=== PATIENT | female | born 1955 | race African-American/Black ===

== ENCOUNTER → 2017-10-16 | Day surgery (SDC) | payer BC ==
[2017-10-15 09:49] LABS: BASOPHILS % 0.4 % (0.0-1.0); EOSINOPHILS # (AUTO) 0.2 (0.0-0.4); EOSINOPHILS % 1.8 % (0.0-6.0); HEMATOCRIT 36.6 % (34.2-44.1); HEMOGLOBIN 11.2 g/dL (12.0-16.0); LYMPHOCYTES # (AUTO) 2.5 (1.0-3.2); LYMPHOCYTES % 28.5 % (18.0-39.1); MEAN CORPUSCULAR HGB CONC 30.6 g/dL (31-35); MEAN CORPUSCULAR VOLUME 84.9 fL (81-99); MONOCYTES # (AUTO) 0.7 (0.2-0.8); MONOCYTES % 7.3 % (4.4-11.3); NEUTROPHILS # (AUTO) 5.5 (2.1-6.9); NEUTROPHILS % 61.4 % (38.7-80.0); PLATELET COUNT 191 x10e3/uL (140-360); RED BLOOD COUNT 4.31 x10e6/uL (3.6-5.1); RED CELL DISTRIBUTION WIDTH 15.2 % (11.7-14.4)
[2017-10-15 10:24] LABS: INR 0.85
[2017-10-15 10:25] LABS: PARTIAL THROMBOPLASTIN TIME 28.1 seconds (23.8-35.5)
[2017-10-15 10:30] LABS: ALANINE AMINOTRANSFERASE 22 IU/L (0-55); ALBUMIN 3.7 g/dL (3.5-5.0); ALBUMIN/GLOBULIN RATIO 0.8 (0.8-2.0); ALKALINE PHOSPHATASE 105 IU/L (40-150); ANION GAP 13.8 mmol/L (8-16); BLOOD UREA NITROGEN 16 mg/dL (7-26); BUN/CREATININE RATIO 17 (6-25); CALCIUM 9.6 mg/dL (8.4-10.2); CARBON DIOXIDE 26 mmol/L (22-29); CHLORIDE 106 mmol/L (98-107); CREATININE, SERUM 0.92 mg/dL (0.57-1.11); EST GLOMERULAR FILTRATION RATE > 60 ML/MIN (60-); GLUCOSE 93 mg/dL (74-118); POTASSIUM 3.8 mmol/L (3.5-5.1); SODIUM 142 mmol/L (136-145)
--- NOTE | 2017-10-15 10:35 | Diagnostic Imaging Report ---
PROCEDURE:CHEST 2 VIEWS TECHNIQUE:PA and lateral chest INDICATION:Preoperative evaluation for stent surgery. COMPARISON:None. FINDINGS: Lungs are clear and symmetrically inflated. No pleural effusions. Normal heart size and mediastinal contour. Intact skeleton. CONCLUSION: No acute abnormality. Dictated by: Naldo Laguna M.D. on 10/15/2017 at 10:43 Electronically approved by: Naldo Laguna M.D. on 10/15/2017 at 10:43
[~2017-10-16] MED LIST: AMLODIPINE BESYL5 MG PO; ATENOLOL50 MG PO; ATORVASTATIN CA20 MG PO; BACTRIM DS TAB1 EACH PO; BELLADONNA/OPIUM 60 MG SUPP PR ONE; CEFOXITIN 1GM/ DEXTROSE 50ML 50 ML IV ONE; CRESTOR10 MG PO; DEXAMETHASONE SOD PHOS INJ 4 MG/ML VIAL ONE; EPHEDRINE SULFATE INJ 50 MG/10 ML SYR ONE; FENTANYL CITRATE/PF 100MCG/2 ML INJ ONE; HYDRALAZINE HCL25 MG PO; HYDRALAZINE HCL50 MG; HYDROCODON-ACE1 EA12 PO; IOPAMIDOL 610MG/1ML 300 MG/ML VIAL IV ONE; LIDOCAINE HCL 2% LOCAL INJ 5 ML SDV VIAL INJ ONE; LIPITOR20 MG PO; LOSARTAN POTAS100 MG PO; MACROBID 100 M100 MG PO; METOPROLOL SUCC50 MG PO; MIDAZOLAM HCL 2 MG/2 ML VIAL ONE; NORCO 10MG-325MG1 EA PO; ONDANSETRON HCL INJ 2 MG/ML VIAL ONE; PROPOFOL IV EMULSION 10 MG/ML 20 ML VIAL ONE; SEVOFLURANE INHAL SOLN 250 ML PEN BTL ONE; VASCEPA PO; VITAMIN D31000 UNIT PO
--- NOTE | 2017-10-16 11:19 | Operative Report ---
DATE OF PROCEDURE: October 16, 2017 PREOPERATIVE DIAGNOSES 1. Bilateral hydronephrosis. 2. Bilateral ureteral strictures. 3. Neurogenic bladder. POSTOPERATIVE DIAGNOSES 1. Bilateral hydronephrosis. 2. Bilateral ureteral strictures. 3. Neurogenic bladder. OPERATION PERFORMED: Cystoscopy and replacement of bilateral, 7-[place], 24-cm, double-pigtail, indwelling ureteral stents. ANESTHESIA: General. INDICATIONS: This patient is a 62-year-old white female whom I have been following for many years for bilateral hydronephrosis and chronic urinary retention due to neurogenic bladder dysfunction and bilateral hydronephrosis due to ureteral strictures. The patient is now due for replacement of her stents, which are replaced every 3 months roughly. For further details, please refer to the history and physical. The procedure was done in the following fashion: DESCRIPTION OF PROCEDURE: The patient was taken to the operating room, placed under general anesthesia, dressed and draped with Hibiclens in lithotomy position in the usual fashion. A preliminary scan with the C-arm revealed the stents to be in good position. The 22-[place] Olympus cystoscope was inserted, and I used the 30-degree oblique lens. Both stents were clearly identified. There was also evidence of cystitis cystica. There was no evidence of malignancy. The distal end of the right ureteral stent was grabbed with flexible grasping forceps and the stent withdrawn through the urethral meatus. I then attempted to pass a Cook guidewire through the stent, but the stent was encrusted. Therefore, the stent was removed. I then inserted an open-ended, 6-[place] catheter through the cystoscope; and through that, I then passed the Cook guidewire through the ureteral orifice up into the kidney on the right side. I then advanced the open-ended catheter over the guidewire. Once this was accomplished, the guidewire was removed. Then I obtained a retrograde pyelogram with 50% dilution of contrast media. This revealed moderate hydronephrosis on the right side. I then reinserted the guidewire up into the kidney and removed the open-ended catheter. I then passed a Cook 7-[place], 24-cm, double-pigtail, indwelling ureteral stent over the guidewire. When I could see the stent was in good position on cystoscopy and fluoroscopy, I removed the guidewire. This revealed the stent to be in good position. A similar procedure was then performed on the left side. Once again, the left stent was grabbed with flexible grasping forceps. When I took it out through the urethra, I was not to pass the guidewire, and I had to remove the stent again. Due to technical difficulties, I had to switch over to a flipper bridge. Then using the flipper bridge, I was able to use the 6-[place], open-ended catheter to pass the guidewire into the left ureteral orifice up into the kidney. Once that was accomplished, I then inserted the 6-[place], open-ended catheter over the guidewire. I then removed the guidewire and obtained a retrograde pyelogram, which showed massive hydronephrosis on the left side. I then reinserted the guidewire and removed the 6-[place], open-ended ureteral catheter. I then passed a new 7-[place], 24-cm Cook stent over the guidewire as before. When I could see the stent and guidewire were in good position on cystoscopy and fluoroscopy, I removed the guidewire. I then now showed on fluoroscopy that I had both stents in good position. The bladder was then emptied and the cystoscope withdrawn. The patient tolerated the procedure well and left the operating room in good condition with both stents identified in good position on fluoroscopy. The patient will have a return appointment to see me again in 2 weeks. Job#: [id number]
== END | disposition home or self-care (01) ==
LOC: OR 07:11
PROVIDERS: ATTEND Urology
DX: N13.1 Hydronephrosis with ureteral stricture, not elsewhere classified (principal); N31.9 Neuromuscular dysfunction of bladder, unspecified; N30.21 Other chronic cystitis with hematuria; Q62.11 Congenital occlusion of ureteropelvic junction; Q62.39 Other obstructive defects of renal pelvis and ureter; I12.9 Hypertensive chronic kidney disease with stage 1 through stage 4 chronic kidney disease, or unspecified chronic kidney disease; N18.9 Chronic kidney disease, unspecified; G89.29 Other chronic pain; R00.1 Bradycardia, unspecified; Z01.810 Encounter for preprocedural cardiovascular examination; Z01.812 Encounter for preprocedural laboratory examination; Z01.818 Encounter for other preprocedural examination; Z68.30 Body mass index [BMI] 30.0-30.9, adult; Z87.442 Personal history of urinary calculi; Z84.1 Family history of disorders of kidney and ureter
CPT/HCPCS: 36415; 52332; 71020; 74420; 80053; 85025; 85610; 85730; 88300; 93005; J1100; J2001; J2250; J2405; Q9967

== ENCOUNTER → 2018-01-08 | Day surgery (SDC) | payer BC ==
[2018-01-07 10:50] LABS: BASOPHILS # (AUTO) 0.1 (0.0-0.1); BASOPHILS % 0.7 % (0.0-1.0); EOSINOPHILS # (AUTO) 0.2 (0.0-0.4); EOSINOPHILS % 2.1 % (0.0-6.0); HEMATOCRIT 35.6 % (34.2-44.1); LYMPHOCYTES # (AUTO) 2.3 (1.0-3.2); MEAN CORPUSCULAR HEMOGLOBIN 26.3 pg (28-32); MEAN CORPUSCULAR HGB CONC 30.9 g/dL (31-35); MONOCYTES # (AUTO) 0.9 (0.2-0.8); MONOCYTES % 10.3 % (4.4-11.3); NEUTROPHILS # (AUTO) 5.3 (2.1-6.9); NEUTROPHILS % 60.1 % (38.7-80.0); PLATELET COUNT 214 x10e3/uL (140-360); RED BLOOD COUNT 4.19 x10e6/uL (3.6-5.1); RED CELL DISTRIBUTION WIDTH 15.9 % (11.7-14.4)
[2018-01-07 11:19] LABS: INR 1.05; PROTHROMBIN TIME 12.9 seconds (11.9-14.5)
[2018-01-07 11:20] LABS: PARTIAL THROMBOPLASTIN TIME 30.9 seconds (23.8-35.5)
[2018-01-07 11:30] LABS: ALANINE AMINOTRANSFERASE 25 IU/L (0-55); ALBUMIN 3.7 g/dL (3.5-5.0); ALBUMIN/GLOBULIN RATIO 0.9 (0.8-2.0); ALKALINE PHOSPHATASE 99 IU/L (40-150); ANION GAP 11.8 mmol/L (8-16); BLOOD UREA NITROGEN 18 mg/dL (7-26); BUN/CREATININE RATIO 17 (6-25); CALCIUM 9.8 mg/dL (8.4-10.2); CARBON DIOXIDE 27 mmol/L (22-29); CHLORIDE 109 mmol/L (98-107); CREATININE, SERUM 1.05 mg/dL (0.57-1.11); EST GLOMERULAR FILTRATION RATE > 60 ML/MIN (60-); GLUCOSE 98 mg/dL (74-118); POTASSIUM 3.8 mmol/L (3.5-5.1); SODIUM 144 mmol/L (136-145)
[~2018-01-08] MED LIST changes: -BELLADONNA/OPIUM 60 MG SUPP PR ONE; -CEFOXITIN 1GM/ DEXTROSE 50ML 50 ML IV ONE; +CEFOXITIN SOD 1 GM VIAL ONE; +DILTIAZEM ER180 MG PO; -EPHEDRINE SULFATE INJ 50 MG/10 ML SYR ONE; +IOPAMIDOL 300MG/ML 50ML INFUS..BTL IV ONE; -IOPAMIDOL 610MG/1ML 300 MG/ML VIAL IV ONE
--- OUTSIDE RECORDS SUMMARY | 2018-01-08 09:22 | XMS REPORT ---
Author Author [facility] Address Unknown Phone Unavailable Care Team Providers Care Manager Lsw Name Role Phone DIANE CHEN Unavailable Unavailable Problems This patient has no known problems. Allergies, Adverse Reactions, Alerts This patient has no known allergies or adverse reactions. Medications This patient has no known medications. Results Test Description Test Time Test Comments Text Results Atomic Results Result Comments CHEST 2 VIEWS [place] [address] Patient Name: WILL LIMA MR #: [id number] : 1955 Age/Sex: 62/F Req #: [id number] Adm Physician: Ordered by: DIANE CHEN MD Report #: [id number] Location: OR Room/Bed: Procedure: [id number] DX/CHEST 2 VIEWS Exam Date: 10/15/17 Exam Time: 1015 REPORT STATUS: Signed PROCEDURE: CHEST 2 VIEWS TECHNIQUE: PA and lateral chest INDICATION: Preoperative evaluation for stent surgery. COMPARISON: None. FINDINGS: Lungs are clear and symmetrically inflated. No pleural effusions. Normal heart size and mediastinal contour. Intact skeleton. CONCLUSION: No acute abnormality. Dictated by: Carolin Laguna M.D. on 10/15/2017 at 10:43 Electronically approved by: Carolin Laguna M.D. on 10/15/2017 at 10:43 Dictated By: CAROLIN LAGUNA MD 1043 Transcribed By: GURVINDER on 10/15/171042 COPY TO: DIANE CHEN MD
--- NOTE | 2018-01-08 13:39 | Operative Report ---
DATE OF PROCEDURE: January 08, 2018 PREOPERATIVE DIAGNOSES: 1. Bilateral hydronephrosis. 2. Neurogenic bladder. 3. Cystitis cystica. POSTOPERATIVE DIAGNOSES: 1. Bilateral hydronephrosis. 2. Neurogenic bladder. 3. Cystitis cystica. OPERATION PERFORMED: Cystoscopy and placement of bilateral ureteral stents. ANESTHESIA: General. INDICATIONS: This patient is a 62-year-old black female with a long history of neurogenic bladder disease, cystitis cystica and bilateral hydronephrosis. I had been replacing bilateral ureteral stents on her for several years now trying to replace them every 3 months in order to keep her kidneys functioning as well as possible. The patient had lab work drawn preoperatively on January 07, 2018. This revealed that she had a BUN of 18 and a creatinine of 1.05. For further details, please refer to the history and physical. The procedure was done in the following fashion. DESCRIPTION OF PROCEDURE: The patient was taken to the operating room and placed under general anesthesia, dressed and draped with Hibiclens in lithotomy position in the usual fashion. A preliminary scan of the abdomen revealed both stents to be in good position, no stones were identified. I inserted the 22-[place] Olympus cystoscope with the 30-degree oblique lens and I could see both stents clearly coming out of the ureteral orifices. There was also evidence of cystitis cystica. The position of the stents was confirmed with fluoroscopy which was used throughout the procedure. The distal end of the right ureter stent was grabbed with the flexible grasping forceps and pulled out through the urethral meatus. I then made several attempts to get a guidewire to go through this including a SureGlide and Amplatz Super Stiff and a Roadrunner and I could not get any of them to go through the stent as the stent appeared to be plugged up with material. The stent was then completely pulled out. I then reinserted the cystoscope with the 30-degree oblique lens and used an 8-[place] open-ended catheter and using that 8-[place] open-ended catheter I was able to direct ultimately a Roadrunner guidewire to go beyond the tortuous areas in the ureter, to go up into the kidney. I advanced the open-ended catheter over the guidewire until it was in the kidney. I removed the Roadrunner and then obtained a retrograde pyelogram. This showed the hydronephrosis present on the right side. I then reinserted a SureGlide guidewire and this went nicely up into the upper pole. I removed the 8-[place] open-ended catheter and then inserted a 7-[place] 26 cm double-pigtail stent over the guidewire. When I could see the stent was in good position both on cystoscopy and fluoroscopy, the guidewire was removed. This revealed a good coil of stent in the kidney and in the bladder. I then went to do similar thing on the left side after having done the right side first. On the left side I once again could not get a guidewire to go through the stent after I had pulled the tip out through the urethral meatus. Therefore, I pulled out the stent completely and then I had to play around with the 6-[place] open-ended catheter and with the guidewires until I ultimately got the 6-[place] open-ended catheter to use a SureGlide guidewire to go through the tortuosity of the ureter and the strictures to go all the way up into the kidney. I advanced the 6-[place] open-ended catheter over the guidewire, removed the guidewire and obtained a retrograde pyelogram which showed the hydronephrosis on the left kidney. I then reinserted the SureGlide guidewire up back up into the kidney through the 6-[place] open-ended catheter and then removed the 6-[place] open-ended catheter leaving the guidewire in good position. The guidewire ended up in the upper pole. Therefore I used a 7-[place] Irish 24 cm double-pigtail indwelling ureter stent on the left kidney and this one passed over the SureGlide guidewire and when I could see it was in good position on cystoscopy and fluoroscopy, the guidewire was removed. This revealed a good coil of stent both within the left kidney and within the bladder. The bladder was then emptied and cystoscope withdrawn. The patient tolerated procedure well and left the operating room in good condition. She will have return appointment to see me again in 2 weeks. Job#: [id number] KEAGAN
== END | disposition home or self-care (01) ==
LOC: OR 09:20
PROVIDERS: ATTEND Urology
DX: N13.1 Hydronephrosis with ureteral stricture, not elsewhere classified (principal); Z46.6 Encounter for fitting and adjustment of urinary device; Q62.11 Congenital occlusion of ureteropelvic junction; Q62.39 Other obstructive defects of renal pelvis and ureter; I12.9 Hypertensive chronic kidney disease with stage 1 through stage 4 chronic kidney disease, or unspecified chronic kidney disease; N18.9 Chronic kidney disease, unspecified; N30.21 Other chronic cystitis with hematuria; N31.9 Neuromuscular dysfunction of bladder, unspecified; Z01.812 Encounter for preprocedural laboratory examination; Z84.1 Family history of disorders of kidney and ureter
CPT/HCPCS: 36415; 52332; 80053; 85025; 85610; 85730; 88300; C1758; C2617; J0694; J1100; J2001; J2250; J2405; Q9967

== ENCOUNTER → 2018-05-21 | Day surgery (SDC) | payer BC ==
[2018-05-20 10:28] LABS: BASOPHILS # (AUTO) 0.1 (0.0-0.1); BASOPHILS % 0.6 % (0.0-1.0); EOSINOPHILS # (AUTO) 0.3 (0.0-0.4); EOSINOPHILS % 3.3 % (0.0-6.0); HEMOGLOBIN 10.5 g/dL (12.0-16.0); LYMPHOCYTES # (AUTO) 2.9 (1.0-3.2); MEAN CORPUSCULAR HEMOGLOBIN 26.7 pg (28-32); MEAN CORPUSCULAR HGB CONC 30.9 g/dL (31-35); MEAN CORPUSCULAR VOLUME 86.5 fL (81-99); MONOCYTES # (AUTO) 0.9 (0.2-0.8); MONOCYTES % 10.7 % (4.4-11.3); NEUTROPHILS # (AUTO) 4.3 (2.1-6.9); NEUTROPHILS % 50.2 % (38.7-80.0); PLATELET COUNT 244 x10e3/uL (140-360); RED BLOOD COUNT 3.93 x10e6/uL (3.6-5.1); RED CELL DISTRIBUTION WIDTH 15.9 % (11.7-14.4)
[2018-05-20 10:40] LABS: INR 1.09; PROTHROMBIN TIME 13.3 seconds (11.9-14.5)
[2018-05-20 10:41] LABS: PARTIAL THROMBOPLASTIN TIME 28.9 seconds (23.8-35.5)
[2018-05-20 10:48] LABS: ALBUMIN 3.6 g/dL (3.5-5.0); ALBUMIN/GLOBULIN RATIO 0.9 (0.8-2.0); ANION GAP 14.2 mmol/L (8-16); CALCIUM 9.7 mg/dL (8.4-10.2); CREATININE, SERUM 1.11 mg/dL (0.57-1.11); POTASSIUM 4.2 mmol/L (3.5-5.1)
[~2018-05-21] MED LIST changes: -MIDAZOLAM HCL 2 MG/2 ML VIAL ONE
--- NOTE | 2018-05-21 10:32 | Operative Report ---
DATE OF PROCEDURE: May 21, 2018 PREOPERATIVE DIAGNOSES 1. Bilateral hydronephrosis. 2. Bilateral ureteral strictures. 3. Neurogenic bladder. POSTOPERATIVE DIAGNOSES 1. Bilateral hydronephrosis. 2. Bilateral ureteral strictures. 3. Neurogenic bladder. OPERATION PERFORMED: Cystoscopy and replacement of bilateral 7-Guyanese, 24 cm, double-pigtail, indwelling ureteral stents. ANESTHESIA: General. INDICATIONS: This patient is a 62-year-old black female who was referred to me many years ago when she was found to have bilateral hydronephrosis and chronic renal failure. The patient also had severe neurogenic bladder dysfunction with urinary retention. She has been treated with intermittent self-catheterization and with cystoscopy and replacement of bilateral ureteral stents. For further details, please refer to the history and physical. The procedure was done in the following fashion: DESCRIPTION OF PROCEDURE: The patient was taken to the operating room and placed under general anesthesia, dressed and draped with Hibiclens in lithotomy position in the usual fashion. A preliminary scan of the abdomen with the C-arm revealed both stents to be in good position. The 25-[place] Olympus cystoscope was inserted with the 30-degree oblique lens and the bladder emptied. Cystoscopy revealed both stents in the bladder with good coils, and there was also evidence of cystitis cystica. There was no evidence of malignancy. The distal end of the right ureteral stent was grabbed with the flexible grasping forceps and pulled out through the urethral meatus. I then passed an Olympus SureGlide guidewire through the right ureteral stent up into the kidney. I then removed the stent, leaving the guidewire in position. I then passed a 5-Guyanese open-ended catheter over the guidewire and removed the guidewire and obtained a retrograde pyelogram. This revealed hydronephrosis present. I then reinserted the guidewire. The 6-Guyanese open-ended catheter was removed. I then passed the cystoscope over the guidewire and then passed an Olympus 7-Guyanese, 24 cm, double-pigtail, indwelling ureteral stent over the guidewire. This revealed a good coil of stent in the bladder and in the kidney. This was after the guidewire had been removed. A similar procedure was then performed on the left side. At the end of the procedure, I could see on cystoscopy good coils on both sides. On fluoroscopy, I could see the stents were in good position, and there was no evidence of extravasation. The bladder was emptied and the cystoscope withdrawn. The patient tolerated the procedure well and left the operating room in good condition. She will have return appointment to see me again in 2 weeks. She will resume her preoperative medications. Job#: [id number]
--- NOTE | 2018-05-21 12:24 | Diagnostic Imaging Report ---
PROCEDURE: X-RAY RETROGRADE PYELOGRAM COMPARISON: None. INDICATIONS: Not provided. FINDINGS: Thirty two intraoperative spot images of the abdomen and pelvis were obtained. There are bilateral double-J ureteral stents present. Both stents have been changed out with new double-J ureteral stents placed. Contrast injection shows severe bilateral hydronephrosis. Cumulative fluoro time: 43 seconds Cumulative area dose product: 545.03 cGycm2 Cumulative air kerma: 15.24 mGy CONCLUSION: Retrograde pyelogram as described above. Martir Fung D.O. Dictated by: Martir Fung D.O. on 05/21/2018 at 12:30 Electronically approved by: Martir Fung D.O. on 05/21/2018 at 12:30
== END | disposition home or self-care (01) ==
LOC: OR 06:34
PROVIDERS: ATTEND Urology
DX: N13.1 Hydronephrosis with ureteral stricture, not elsewhere classified (principal); Z46.6 Encounter for fitting and adjustment of urinary device; N30.21 Other chronic cystitis with hematuria; N31.9 Neuromuscular dysfunction of bladder, unspecified; Q62.39 Other obstructive defects of renal pelvis and ureter; I12.9 Hypertensive chronic kidney disease with stage 1 through stage 4 chronic kidney disease, or unspecified chronic kidney disease; N18.9 Chronic kidney disease, unspecified; E78.00 Pure hypercholesterolemia, unspecified; Z01.810 Encounter for preprocedural cardiovascular examination; Z01.812 Encounter for preprocedural laboratory examination; Z68.32 Body mass index [BMI] 32.0-32.9, adult; Z87.442 Personal history of urinary calculi; Z84.1 Family history of disorders of kidney and ureter
CPT/HCPCS: 36415; 52332; 74420; 80053; 85025; 85610; 85730; 88300; 93005; C2617; J0694; J1100; J2001; J2405; Q9967

== ENCOUNTER 2018-06-10 12:53 | Inpatient (IN) | payer BC ==
[~2018-06-10] VITALS: Ht 162.6 cm; Wt 88.9 kg
[~2018-06-10 12:53] MED LIST changes: -CEFOXITIN SOD 1 GM VIAL ONE; -DEXAMETHASONE SOD PHOS INJ 4 MG/ML VIAL ONE; -FENTANYL CITRATE/PF 100MCG/2 ML INJ ONE; -IOPAMIDOL 300MG/ML 50ML INFUS..BTL IV ONE; -LIDOCAINE HCL 2% LOCAL INJ 5 ML SDV VIAL INJ ONE; -ONDANSETRON HCL INJ 2 MG/ML VIAL ONE; -PROPOFOL IV EMULSION 10 MG/ML 20 ML VIAL ONE; -SEVOFLURANE INHAL SOLN 250 ML PEN BTL ONE
[2018-06-10 13:15] VITALS: BP 137/93
[2018-06-10] MEDS ORDERED: HYDROCODONE/APAP 7.5MG-325MG 1 EA TAB PO PRN (13:45)
[2018-06-10] MEDS ORDERED: ONDANSETRON HCL INJ 2 MG/ML VIAL IV PRN (13:45)
[2018-06-10] MEDS: MEROPENEM 500 MG VIAL IV SCH ×2 (15:00→21:39)
[2018-06-10 15:10] LABS: BASOPHILS % 0.2 % (0.0-1.0); EOSINOPHILS % 0.2 % (0.0-6.0); HEMATOCRIT 32.4 % (34.2-44.1); HEMOGLOBIN 10.3 g/dL (12.0-16.0); LYMPHOCYTES # (AUTO) 1.6 (1.0-3.2); LYMPHOCYTES % 14.8 % (18.0-39.1); MEAN CORPUSCULAR HGB CONC 31.8 g/dL (31-35); MONOCYTES # (AUTO) 1.2 (0.2-0.8); MONOCYTES % 11.5 % (4.4-11.3); NEUTROPHILS # (AUTO) 7.7 (2.1-6.9); NEUTROPHILS % 72.6 % (38.7-80.0); PLATELET COUNT 164 x10e3/uL (140-360); RED BLOOD COUNT 3.81 x10e6/uL (3.6-5.1); RED CELL DISTRIBUTION WIDTH 15.9 % (11.7-14.4)
[2018-06-10] MEDS ORDERED: SODIUM CHLORIDE 0.9% IV SCH (15:15)
[2018-06-10] MEDS ORDERED: GENTAMICIN SULFATE IV SCH (15:15)
[2018-06-10 15:42] LABS: ALANINE AMINOTRANSFERASE 45 IU/L (0-55); ALBUMIN 3.6 g/dL (3.5-5.0); ALBUMIN/GLOBULIN RATIO 0.9 (0.8-2.0); ALKALINE PHOSPHATASE 99 IU/L (40-150); ANION GAP 13.5 mmol/L (8-16); BLOOD UREA NITROGEN 13 mg/dL (7-26); BUN/CREATININE RATIO 14 (6-25); CALCIUM 9.7 mg/dL (8.4-10.2); CARBON DIOXIDE 23 mmol/L (22-29); CHLORIDE 102 mmol/L (98-107); CREATININE, SERUM 0.95 mg/dL (0.57-1.11); EST GLOMERULAR FILTRATION RATE > 60 ML/MIN (60-); GLUCOSE 101 mg/dL (74-118); POTASSIUM 3.5 mmol/L (3.5-5.1); SODIUM 135 mmol/L (136-145)
[2018-06-10] MEDS: SODIUM CHLORIDE 0.9% 1000ML 1,000 ML IV SCH (15:46)
[2018-06-10 15:51] VITALS: BP 137/93
[2018-06-10 16:00] VITALS: BP 151/77
[2018-06-10 16:08] VITALS: BP 137/93
[2018-06-10] MEDS ORDERED: GENTAMICIN SULFATE 160 MG in SODIUM CHLORIDE 0.9% 100 ML 100 ML IV SCH ×4 (16:15)
[2018-06-10] MEDS ORDERED: MEROPENEM 500MG 500 MG in SODIUM CHLORIDE 0.9% 50ML 50 ML IV SCH (18:00)
[2018-06-10 20:00] VITALS: BP 135/76
[2018-06-10 21:00] VITALS: BP 135/76
[2018-06-10] MEDS ORDERED: CRESTOR 10MG PO SCH (21:00)
[2018-06-10] MEDS: ACETAMINOPHEN 325 MG TAB PO PRN (21:39)
[2018-06-11] VITALS (9 sets, daily range): BP systolic 141–189; BP diastolic 75–91
[2018-06-11] MEDS: SODIUM CHLORIDE 0.9% 1000ML 1,000 ML IV SCH ×2 (00:25→09:06)
[2018-06-11] MEDS: MEROPENEM 500 MG VIAL IV SCH ×4 (03:23→21:09)
[2018-06-11] MEDS ORDERED: GENTAMICIN SULFATE 160 MG in SODIUM CHLORIDE 0.9% 100 ML 100 ML IV SCH (04:00)
[2018-06-11] MEDS: ACETAMINOPHEN 325 MG TAB PO PRN ×2 (06:02→21:19)
--- NOTE | 2018-06-11 06:08 | Diagnostic Imaging Report ---
ABDOMEN-1VIEW (KUB) Clinical history: \S\possible septic \[id number] \S\2034 Technique: AP views abdomen Comparison: None Findings: Abdomen: Nonobstructive bowel gas pattern. Other: Bilateral double-J ureteral stents, low lying on the right with the superior coil extending from the right of L3. The left superior coil extends from the left of L2. Impression: Bilateral double-J ureteral stents, low lying on the right. Unable to compare positioning to placement images, which are unavailable at the time of dictation. Signed by: Dr Estefania Vazquez MD on 06/11/2018 6:05 AM
[2018-06-11] MEDS: LOSARTAN POTASSIUM 100 MG TAB PO SCH (09:00)
[2018-06-11] MEDS: METOPROLOL TARTRATE 50 MG TAB PO SCH (09:00)
[2018-06-11] MEDS ORDERED: IBUPROFEN 600 MG TAB PO PRN (09:45)
[2018-06-11] MEDS: VANCOMYCIN 1GM/NS 250 ML 250 ML IV SCH ×2 (10:00→21:09)
--- NOTE | 2018-06-11 10:52 | History and Physical ---
CHIEF COMPLAINT: Fever and dysuria. HISTORY OF PRESENT ILLNESS: This is a 63-year-old female who has been admitted on several occasions in the past, who has a past medical history of bilateral hydronephrosis that was noted several years ago in which she requires every so often cystoscopies and also has double pigtail stents, who comes in after found have a fever at the urology clinic, and told to come in for underlying concerns of sepsis. Patient reports that on Thursday she was complaining of some dysuria and some fever. Has some decreased oral intake and was not feeling well. She denies any chest pain or palpitations. She denies any abdominal pain. She reported to her urologist yesterday, and was told to come to the ER due to underlying fever and concerns for sepsis. Patient was seen and evaluated at bedside on the medical floor. Currently, doing well with no other complaints. She does continue to have a fever, but she is on IV antibiotics. Urine and blood cultures have been collected. Patient was evaluated. Currently, doing well. Alert and oriented on examination. Tolerating diet with no other issues. REVIEW OF SYSTEMS: Pertinent positives are dysuria, fever and cloudy urine. Pertinent negatives: Denies any chest pain, palpitations, nausea, vomiting, diarrhea, hematuria, frequency, urgency, lightheadedness, dizziness, abdominal pain, headache, shortness of breath, cough, congestion, or any other complaints. The rest of the 14-point review of systems is reviewed with the patient and are negative. ALLERGIES: NO KNOWN DRUG ALLERGIES. MEDICATIONS: She takes diltiazem ER 180 mg daily. PAST MEDICAL HISTORY: Hypertension. She also has a history of hydronephrosis with ureteral stricture first seen on April 16, 2017. Also, has a history of urinary retention, gross hematuria in the past, CKD, congenital occlusion of the ureteropelvic junction, neuromuscular dysfunction of the bladder, chronic cystitis with hematuria. SURGICAL HISTORY: She has had multiple cystoscopies with stents exchanged. FAMILY HISTORY: Hypertension, diabetes, arthritis, gout, CAD, kidney disorder. SOCIAL HISTORY: She is . No drugs. No alcohol. Does not smoke. VITAL SIGNS: Temperature is currently is 102, pulse is 80, respiratory rate is 20, blood pressure 157/82, pulse ox 96% on room air. GENERAL: Not in acute distress. Alert and oriented times 3. Cooperative on examination. HEENT: Head is normocephalic and atraumatic. Eyes: Pupils equal, round and reactive to light bilaterally. Extraocular movements intact bilaterally. NECK: Supple. Good range of motion. Throat with no evidence of any erythema or exudates in the posterior pharynx. Has poor dentition. PULMONARY: Clear to auscultation bilaterally. No wheezing. No rales. No rhonchi. No crackles appreciated. CARDIOVASCULAR: Positive S1 and S2. No murmurs, rubs or gallops appreciated. ABDOMEN: Soft, nondistended and nontender to palpation. Bowel sounds present. MUSCULOSKELETAL: Strength is 5/5 throughout. No evidence of any muscle deficit on examination. No weakness appreciated. NEUROLOGICAL: Cranial nerves II-XII are grossly intact. No evidence of any neurological deficits on exam. SKIN: Intact. Warm to touch. Good cap refill. PSYCHIATRIC: Normal affect and mood. EXTREMITIES: No edema. Good range of motion throughout. LAB FINDINGS: Show a white count 10.5, hemoglobin was 10.3, hematocrit 32, and platelets of 164,000. Chemistry: Sodium 135, potassium 3.5, chloride 102, bicarb 23, anion gap of 13, BUN is 13, creatinine is 0.95, glucose is 101. Calcium 9.7, total bilirubin 0.7, AST 48, ALT 45, alk phos 99, total protein 7.6, albumin 3.6. MICROBIOLOGY: Blood and urine cultures are pending. IMAGING STUDIES: KUB shows bilateral double J-stent low lying on the right. Otherwise, no other acute findings. IMPRESSION 1. Sepsis due to underlying urinary tract infection with underlying fever. 2. History of double J-stent, being followed up by urology. 3. Hypertension. 4. Hyperlipidemia. 5. Prophylaxis. 6. Fluid, electrolytes and nutrients. PLAN: At this time, urology and ID have been consulted. Blood and urine cultures have been collected. Patient will be on IV antibiotics of Merrem and vancomycin. We are going to resume all her home medications with no changes in her regimen. She is currently febrile at 102, but as given Tylenol and Motrin has now been ordered. Will consult ID and urology as well. Her blood and urine cultures are still currently pending. We will get a.m. labs. We will start on Lovenox 40 mg subcutaneous daily. Job#: [id number] RI
[2018-06-11] MEDS: ENOXAPARIN SOD INJ 40 MG/0.4 ML SYR SC SCH (16:10)
--- NOTE | 2018-06-11 17:27 | Progress Note ---
DATE: June 11, 2018 This patient is a 63-year-old black female who I saw in my office yesterday and she appeared septic, and had a temperature of 101.6 and a pulse of 82. She has a history of having bilateral hydronephrosis since 2006 and I have been replacing her stents for many years. The patient was admitted directly to Dr. Theodore and I requested that various lab work be drawn. It turns out that the patient had a flat plate of the abdomen obtained yesterday, and I compared the flat plate of the abdomen yesterday with the retrogrades that were taken when I replaced her stents about 2-3 weeks ago. This showed that the stents are still in perfect position. The patient's white count on admission was 10,000. Today, the white count was 10,500. Her creatinine today was 0.95 and BUN was 13, so the stents appeared to be keeping her kidneys within acceptable limits for the time being. PHYSICAL EXAMINATION GENERAL: The patient is alert and oriented to person, place and time. She states she feels much better. ABDOMEN: Soft. LUNGS: She is breathing without difficulty. The urine cultures and sensitivities have come back showing Streptococcus species with the final identifications and sensitivities still pending. The blood cultures so far are no growth. IMPRESSION: Sepsis. Presence of bilateral ureteral stents for bilateral hydronephrosis and neurogenic bladder dysfunction. RECOMMENDATIONS: My recommendations at this time are that she stay in the hospital on IV antibiotics until we are sure what the right antibiotic is to send her home on. I need to replace her stents every 3 months. Job#: [id number]
[2018-06-11] MEDS: CEFTRIAXONE SOD 1 GM VIAL IV SCH (17:30)
--- NOTE | 2018-06-11 18:04 | Consultation ---
DATE OF CONSULTATION: REASON FOR CONSULTATION: UTI. HISTORY OF PRESENT ILLNESS: This patient, who is a very pleasant 63-year-old female who has history of UTI. The patient has history of bilateral hydronephrosis that was noted for several years ago. She had cystoscopy. She had double pigtail stents. Patient comes in with fever and chills, urgency, and frequency. She was admitted to the emergency room. She was currently in the hospital, started IV antibiotic. She is telling me she is feeling better in general, but she continued to have urgency and frequency. PAST MEDICAL HISTORY: History of UTI, hypertension, chronic kidney disease, hydronephrosis, urethral stricture first seen on April 18, 2017. Recurrent UTI, chronic kidney disease, dysfunctional bladder, cystitis. PAST SURGICAL HISTORY: Multiple stents, multiple surgical cystoscopies. FAMILY HISTORY: Hypertension and diabetes. SOCIAL HISTORY: There is no smoking, drug abuse, alcohol abuse. REVIEW OF SYSTEMS: At the present time HEENT: Negative. PULMONARY: Negative. CARDIAC: Negative. : Negative. SKIN: There is no other rashes. Her review of systems otherwise unremarkable. Her urine culture showed Streptococcus agalactiae (group B). Her white count is 10.53, hemoglobin 10. Sodium 135, potassium 3.5, creatinine 0.95. Patient is currently on Lovenox, meropenem, vancomycin. PHYSICAL EXAMINATION GENERAL: She is currently alert, oriented. Does not seem to be in acute distress. VITALS: Stable, currently afebrile. HEENT: She does not appear icteric. NECK: Supple. CHEST: Clear. HEART: S1, S2. No murmur. ABDOMEN: Soft. IMPRESSION: Urinary tract infection with streptococcus. I will suggest to change her to Rocephin 2 grams daily. However, once she is getting better over the next day or two, probably can switch to Keflex 500 mg q.8. Will discuss with the attending. Will follow with you. Job#: [id number] TANYA
[2018-06-11] MEDS ORDERED: NIFEDIPINE 10 MG CAP PO STA (20:57)
[2018-06-11] MEDS ORDERED: HYDRALAZINE HCL 20 MG/ML VIAL IV PRN (21:00)
[2018-06-11] MEDS: SIMVASTATIN 40 MG TAB PO SCH (21:09)
[2018-06-11] MEDS ORDERED: NIFEDIPINE CR 30 MG TAB PO ONE (21:15)
[2018-06-12 01:33] VITALS: BP 172/96
[2018-06-12] MEDS: SODIUM CHLORIDE 0.9% 1000ML 1,000 ML IV SCH ×2 (03:10→05:45)
[2018-06-12] MEDS: MEROPENEM 500 MG VIAL IV SCH ×2 (03:10→09:00)
[2018-06-12 05:18] LABS: BASOPHILS % 0.1 % (0.0-1.0); EOSINOPHILS # (AUTO) 0.2 (0.0-0.4); HEMATOCRIT 31.6 % (34.2-44.1); HEMOGLOBIN 9.8 g/dL (12.0-16.0); LYMPHOCYTES % 26.1 % (18.0-39.1); MEAN CORPUSCULAR HEMOGLOBIN 26.8 pg (28-32); MEAN CORPUSCULAR VOLUME 86.3 fL (81-99); MONOCYTES # (AUTO) 0.9 (0.2-0.8); MONOCYTES % 12.3 % (4.4-11.3); NEUTROPHILS # (AUTO) 4.4 (2.1-6.9); NEUTROPHILS % 58.4 % (38.7-80.0); PLATELET COUNT 174 x10e3/uL (140-360); RED BLOOD COUNT 3.66 x10e6/uL (3.6-5.1); RED CELL DISTRIBUTION WIDTH 15.6 % (11.7-14.4)
[2018-06-12 05:49] LABS: ANION GAP 11.8 mmol/L (8-16); BLOOD UREA NITROGEN 11 mg/dL (7-26); BUN/CREATININE RATIO 14 (6-25); CALCIUM 9.4 mg/dL (8.4-10.2); CARBON DIOXIDE 26 mmol/L (22-29); CHLORIDE 106 mmol/L (98-107); CREATININE, SERUM 0.78 mg/dL (0.57-1.11); EST GLOMERULAR FILTRATION RATE > 60 ML/MIN (60-); GLUCOSE 100 mg/dL (74-118); POTASSIUM 3.8 mmol/L (3.5-5.1); SODIUM 140 mmol/L (136-145)
[2018-06-12] MEDS: LOSARTAN POTASSIUM 100 MG TAB PO SCH (06:30)
[2018-06-12] MEDS: METOPROLOL TARTRATE 50 MG TAB PO SCH (06:31)
[2018-06-12] MEDS: ACETAMINOPHEN 325 MG TAB PO PRN (06:31)
[2018-06-12 06:46] VITALS: BP 187/90
[2018-06-12 08:00] VITALS: BP 187/90
[2018-06-12 08:27] VITALS: BP 131/75
[2018-06-12] MEDS: VANCOMYCIN 1GM/NS 250 ML 250 ML IV SCH (09:00)
--- NOTE | 2018-06-12 10:31 | Progress Note ---
DATE: June 12, 2018 SUBJECTIVE: Patient is doing well today with no complaints. Urine culture is positive for group B strep. She is afebrile. She is tolerating diet well. She is ambulating. OBJECTIVE VITAL SIGNS: Temperature is 97, pulse 59, respiratory rate 18, blood pressure is 131/75, pulse ox is 97% on room air. GENERAL: Not in acute distress. Alert and oriented times 3. Cooperative on examination. HEENT: Head is normocephalic and atraumatic. Eyes: Pupils equal, round and reactive to light bilaterally. Extraocular movements intact bilaterally. NECK: Supple. Good range of motion. Throat with no evidence of any erythema or exudates in the posterior pharynx. Has poor dentition. PULMONARY: Clear to auscultation bilaterally. No wheezing. No rales. No rhonchi. No crackles appreciated. CARDIOVASCULAR: Positive S1 and S2. No murmurs, rubs or gallops appreciated. ABDOMEN: Soft, nondistended and nontender to palpation. Bowel sounds present. MUSCULOSKELETAL: Strength is 5/5 throughout. No evidence of any muscle deficit on examination. No weakness appreciated. NEUROLOGICAL: Cranial nerves II-XII are grossly intact. No evidence of any neurological deficits on exam. SKIN: Intact. Warm to touch. Good cap refill. PSYCHIATRIC: Normal affect and mood. EXTREMITIES: No edema. Good range of motion throughout. LAB FINDINGS: Show white count is 7.5, hemoglobin is 9.8, hematocrit is 32, and platelets of 174,000. Chemistry: Sodium 140, potassium 3.8, chloride 106, bicarb 26, anion gap of 11, BUN is 11, creatinine is 0.78. Calcium is 9.4. MICROBIOLOGY: Urine culture shows group B strep achalasia. Blood cultures were negative. IMPRESSION 1. Sepsis due to underlying urinary tract infection with fever. 2. History of double J-stent. 3. Hypertension. 4. Hyperlipidemia. 5. Fluid, electrolytes and nutrients. PLAN: At this time, her urine culture is positive for group B strep achalasia. Blood cultures are negative. Continue with IV antibiotics. ID is following. She has been afebrile. Normal white count now. Urology is also following as well. I am not sure if there is going to be an exchange of stent during this hospital stay. Will await for clearance of her urine. She will be able to get that done at a later date. Continue with Lovenox for DVT prophylaxis. She is on a regular diet. Her blood pressure was slightly elevated, and medications were adjusted accordingly. Job#: [id number] [facility]
[2018-06-12 12:22] VITALS: BP 139/65
--- NOTE | 2018-06-12 13:36 | Progress Note ---
DATE: June 12, 2018 The patient is afebrile today. She states she is having no discomfort at all at this point in time. Hemoglobin was 9.8 and hematocrit 31.6. BUN 11 and creatinine 0.78. PHYSICAL EXAMINATION GENERAL: Reveals the patient is alert and oriented to person, place and time. ABDOMEN: Soft. CHEST: She is breathing without difficulty. EXTREMITIES: There is no evidence of a DVT. The plan at this time is the patient to complete her course of IV antibiotics and then to go home resuming her clean intermittent self catheterization when Dr. Theodore feels it is safe to send her home. Job#: [id number] [facility]
[2018-06-12] MEDS: ENOXAPARIN SOD INJ 40 MG/0.4 ML SYR SC SCH (17:00)
[2018-06-12] MEDS: CEFTRIAXONE SOD 1 GM VIAL IV SCH (17:30)
[2018-06-12 20:00] VITALS: BP 153/70
[2018-06-12] MEDS: SIMVASTATIN 40 MG TAB PO SCH (20:04)
[2018-06-13] VITALS (7 sets, daily range): BP systolic 149–165; BP diastolic 64–88
[2018-06-13] MEDS: METOPROLOL TARTRATE 50 MG TAB PO SCH (09:00)
[2018-06-13] MEDS: LOSARTAN POTASSIUM 100 MG TAB PO SCH (09:00)
--- NOTE | 2018-06-13 10:19 | Progress Note ---
DATE: June 13, 2018 INTERNAL MEDICINE PROGRESS NOTE SUBJECTIVE: Patient is doing great with no complaints. She has been afebrile. I am not sure if urology wants to do any interventions while the patient is here. Patient is otherwise doing great with no complaints. She is ambulating and tolerating diet well. OBJECTIVE VITAL SIGNS: Temperature is 97.5, pulse 55, respiratory rate 18, blood pressure is 149/69, pulse ox 98% on room air. GENERAL: Not in acute distress. Alert and oriented times 3. Cooperative on examination. HEENT: Head is normocephalic and atraumatic. Eyes: Pupils equal, round and reactive to light bilaterally. Extraocular movements intact bilaterally. NECK: Supple. Good range of motion. Throat with no evidence of any erythema or exudates in the posterior pharynx. Has poor dentition. PULMONARY: Clear to auscultation bilaterally. No wheezing. No rales. No rhonchi. No crackles appreciated. CARDIOVASCULAR: Positive S1 and S2. No murmurs, rubs or gallops appreciated. ABDOMEN: Soft, nondistended and nontender to palpation. Bowel sounds present. MUSCULOSKELETAL: Strength is 5/5 throughout. No evidence of any muscle deficit on examination. No weakness appreciated. NEUROLOGICAL: Cranial nerves II-XII are grossly intact. No evidence of any neurological deficits on exam. SKIN: Intact. Warm to touch. Good cap refill. PSYCHIATRIC: Normal affect and mood. EXTREMITIES: No edema. Good range of motion throughout. LAB FINDINGS: Show white count of 7.5, hemoglobin 9.8, hematocrit is 32, and platelets of 174,000. Chemistry: Sodium 140, potassium 3.8, chloride 106, bicarb 26, anion gap of 11, BUN is 11, creatinine is 0.78, glucose is 100. Calcium 9.4. MICROBIOLOGY: Urine culture was positive for Strep achalasia, group B. IMAGING STUDIES: None. IMPRESSION 1. Sepsis secondary to urinary tract infection with fever. 2. History of double J-stent. 3. Hypertension. 4. Hyperlipidemia. 5. Prophylaxis. PLAN: At this time, urine culture was positive. She is on IV antibiotics. She is doing well, afebrile and normal white count. I will discuss with urology and ID tomorrow about discharge planning. I am not sure if urology wants to do any procedures while in the hospital, which I will discuss with tomorrow. In relation to ID, I will get the oral antibiotic regimen, likely penicillin and discharge the patient. Otherwise, continue same plan of care. Job#: [id number] [facility]
--- NOTE | 2018-06-13 11:21 | Progress Note ---
DATE: June 13, 2018 The patient states she is feeling much better than she was prior to admission. She has a temperature of 97.5. Her hemoglobin is 9.8 and white count is 7.54. BUN 11 and creatinine 0.78. It would appear that the bilateral stents have been working well for the past several years. I anticipate that the patient will be discharged tomorrow. I would like to see her again in my office in 2 weeks for followup after that. Job#: [id number] [facility]
[2018-06-13] MEDS: ENOXAPARIN SOD INJ 40 MG/0.4 ML SYR SC SCH (17:00)
[2018-06-13] MEDS: CEFTRIAXONE SOD 1 GM VIAL IV SCH (17:30)
[2018-06-13] MEDS: SIMVASTATIN 40 MG TAB PO SCH (20:15)
[2018-06-14 01:34] VITALS: BP 141/67
[2018-06-14 08:00] VITALS: BP 158/79
[2018-06-14] MEDS: METOPROLOL TARTRATE 50 MG TAB PO SCH (08:21)
[2018-06-14] MEDS: LOSARTAN POTASSIUM 100 MG TAB PO SCH (08:21)
[2018-06-14] MEDS ORDERED: KEFLEX500 MG PO (10:12)
--- NOTE | 2018-06-14 15:44 | Discharge Summary ---
FINAL DISCHARGE DIAGNOSES 1. Sepsis secondary to urinary tract infection with fever. 2. History of double-J stent. 3. Urinary tract infection. 4. Hypertension. 5. Hyperlipidemia. CONSULTANTS: Urology and infectious disease. VITAL SIGNS: Temperature is 96.2, pulse 60, respiratory rate 18, blood pressure 158/76, pulse ox 100% on room air. LAB FINDINGS: White count 7.5, hemoglobin 9.8, hematocrit 32, platelets of 174. Chemistry: Sodium 140, potassium 3.8, chloride 106, bicarb 26, anion gap of 11, BUN 11, creatinine 0.78. Glucose is 100 and calcium 9.4. MICROBIOLOGY: Blood cultures were negative. Urine culture was positive for Strep agalactiae and was group B. IMAGING STUDIES: Abdominal x-ray showed bilateral double-J stents, low lying on the right. Unable to compare to placement imaging. HOSPITAL COURSE: This is a 63-year-old female who has a double-J stent, who was sent in by her urologist due to underlying fever. On presentation, patient had fever and was treated for underlying sepsis. Patient was on broad-spectrum antibiotics. Blood and urine cultures were collected. Blood cultures were negative. Urine culture is positive for group-B strep. Urology and ID were consulted. Patient improved throughout the hospital course. She was afebrile with normal white count. Patient will be discharged on oral Keflex 500 mg p.o. t.i.d. for 10 more days. On discharge, the patient was back to normal baseline with no other complaints. Patient has been cleared by the consultants for discharge home. On the day of discharge, vital signs were stable, labs reviewed and stable. The patient was seen, evaluated and examined thoroughly on the day of discharge. No other complaints. The patient verbalized understanding and agreed to plan of care and to follow up accordingly as an outpatient with primary care physician in 1 week and urologist in 1 week. MEDICATIONS: See med reconciliation form including Keflex 1 tab p.o. t.i.d. for 10 more days. DISPOSITION: Home. CONDITION: Stable. DIET: Heart healthy. FOLLOWUP: With your PCP in 1 week as well as urologist in 1 week. In the event of any worsening symptoms, the patient was advised to come back to the ED for further evaluation. Discharge summary took greater than 35 minutes. ZACH GARCIA MD Job#: [id number] [facility]
== END 2018-06-14 10:54 | disposition home or self-care (01) | DRG 872 ==
LOC: MED/SURG2 13:00
PROVIDERS: ADMIT Internal Medicine; ATTEND Internal Medicine
DX: A40.1 Sepsis due to streptococcus, group B (principal); N39.0 Urinary tract infection, site not specified; N13.30 Unspecified hydronephrosis; E78.5 Hyperlipidemia, unspecified; Z96.0 Presence of urogenital implants; N31.9 Neuromuscular dysfunction of bladder, unspecified; I12.9 Hypertensive chronic kidney disease with stage 1 through stage 4 chronic kidney disease, or unspecified chronic kidney disease; N18.9 Chronic kidney disease, unspecified
CPT/HCPCS: 36415; 74018; 80048; 80053; 80170; 85025; 87040; 87086; J0696; J1580; J1650; J2185; J3370; J7030

== ENCOUNTER → 2018-08-20 | Day surgery (SDC) | payer BC ==
[2018-08-19 10:24] LABS: BASOPHILS # (AUTO) 0.1 (0.0-0.1); BASOPHILS % 0.6 % (0.0-1.0); EOSINOPHILS # (AUTO) 0.2 (0.0-0.4); EOSINOPHILS % 2.5 % (0.0-6.0); HEMATOCRIT 36.1 % (34.2-44.1); HEMOGLOBIN 11.1 g/dL (12.0-16.0); LYMPHOCYTES # (AUTO) 2.7 (1.0-3.2); LYMPHOCYTES % 29.8 % (18.0-39.1); MEAN CORPUSCULAR HEMOGLOBIN 26.6 pg (28-32); MEAN CORPUSCULAR HGB CONC 30.7 g/dL (31-35); MEAN CORPUSCULAR VOLUME 86.6 fL (81-99); MONOCYTES # (AUTO) 0.8 (0.2-0.8); MONOCYTES % 8.6 % (4.4-11.3); NEUTROPHILS # (AUTO) 5.2 (2.1-6.9); NEUTROPHILS % 57.9 % (38.7-80.0); PLATELET COUNT 248 x10e3/uL (140-360); RED BLOOD COUNT 4.17 x10e6/uL (3.6-5.1); RED CELL DISTRIBUTION WIDTH 14.6 % (11.7-14.4)
[2018-08-19 10:32] LABS: INR 0.84; PROTHROMBIN TIME 12.3 seconds (11.9-14.5)
[2018-08-19 10:33] LABS: PARTIAL THROMBOPLASTIN TIME 29.2 seconds (23.8-35.5)
[2018-08-19 13:14] LABS: ALANINE AMINOTRANSFERASE 23 IU/L (0-55); ALBUMIN 3.9 g/dL (3.5-5.0); ALBUMIN/GLOBULIN RATIO 1.1 (0.8-2.0); ALKALINE PHOSPHATASE 127 IU/L (40-150); ANION GAP 16.2 mmol/L (8-16); BLOOD UREA NITROGEN 20 mg/dL (7-26); BUN/CREATININE RATIO 23 (6-25); CALCIUM 9.2 mg/dL (8.4-10.2); CARBON DIOXIDE 21 mmol/L (22-29); CHLORIDE 104 mmol/L (98-107); CREATININE, SERUM 0.88 mg/dL (0.57-1.11); EST GLOMERULAR FILTRATION RATE > 60 ML/MIN (60-); GLUCOSE 90 mg/dL (74-118); POTASSIUM 4.2 mmol/L (3.5-5.1); SODIUM 137 mmol/L (136-145)
[~2018-08-20] MED LIST changes: +CEFOXITIN SOD 1 GM VIAL ONE; +DEXAMETHASONE SOD PHOS INJ 4 MG/ML VIAL ONE; +FENTANYL CITRATE/PF 100MCG/2 ML INJ ONE; +IOPAMIDOL 610MG/1ML 300 MG/ML VIAL IV ONE; +KEFLEX500 MG PO; +LIDOCAINE HCL 2% LOCAL INJ 5 ML SDV VIAL INJ ONE; +MIDAZOLAM HCL 2 MG/2 ML VIAL ONE; +MORPHINE SULFATE 2 MG/ML SYR ONE; +NORCO 7.5-3251 EACH PO; +ONDANSETRON HCL INJ 2 MG/ML VIAL ONE; +PROPOFOL IV EMULSION 10 MG/ML 20 ML VIAL ONE; +SEVOFLURANE INHAL SOLN 250 ML PEN BTL ONE
--- OUTSIDE RECORDS SUMMARY | 2018-08-20 08:15 | XMS REPORT | Clinical Summary ---
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 03/31/2018 levoFLOXacin (LEVAQUIN) Take 1 tablet 14 tablet 0 500 MG tablet (500 mg 8 total) by mouth daily for 14 days. Active Problems Problem Noted Date UTI (urinary tract infection) 03/15/2018 Ureteral stent occlusion, initial encounter 03/14/2018 Neurogenic bladder 03/14/2018 Encounters Care Team Description Date Type Specialty Benigno Millard MD Cysto URETERAL STENT EXCHANGE-BILATERAL 03/17/2018 Surgery General Surgery Srikanth Poole MD 03/17/2018 Anesthesia General Surgery Event Suresh Grigsby MD Morris, David, DO Bavare, Arusha Amod, MD Okuwobi, Olukayode Olatilewa, MD Ureteral stent occlusion, initial encounter (Primary Dx); Flank pain; Occlusion of ureteral stent, initial encounter; Urinary tract infection without hematuria, site unspecified 03/13/2018 [facility] General Internal Medicine - Encounter 03/17/2018 after 08/19/2017 Family History Medical History Relation Name Comments Diabetes Brother Heart disease Brother Hypertension Brother Hypertension Father Hypertension Mother Hypertension Sister Kidney disease Sister Relation Name Status Comments Brother Father Mother Sister Social History Date Tobacco Use Types Packs/Day Years Used Never Smoker Smokeless Tobacco: Never Used Alcohol Use Drinks/Week oz/Week Comments No Sex Assigned at Date Recorded Not on file Industry Job Start Date Occupation Not on file Not on file Not on file Travel End Travel History Travel Start No recent travel history available. Last Filed Vital Signs Time Taken Vital Sign Reading 03/17/2018 2:47 PM CDT Blood Pressure 152/67 03/17/2018 2:47 PM CDT Pulse 72 03/17/2018 2:47 PM CDT Temperature 36.6 C (97.9 F) 03/17/2018 2:47 PM CDT Respiratory Rate 16 03/17/2018 2:47 PM CDT Oxygen Saturation 99% - Inhaled Oxygen - Concentration 03/13/2018 8:10 PM CDT Weight 81.6 kg (180 lb) 03/13/2018 8:10 PM CDT Height 162.6 cm (5' 4") 03/13/2018 8:10 PM CDT Body Mass Index 30.9 Plan of Treatment Health Maintenance Due Date Last Done Comments CERVICAL CANCER SCREENING 1977 COLON CANCER SCREENING 2006 SHINGRIX VACCINE (1 of 2) 2006 ZOSTER VACCINE 2016 BREAST CANCER SCREENING 03/19/2018 03/19/2016, 09/10/2015, 03/02/2015, Additional history exists INFLUENZA VACCINE 05/05/2018 Implants Device Identifier Shelf Expiration Date Model / Serial / Lot Implanted Type Area Manufactur er 10/15/2020 [id number] / / [id number] X 26cm [employer] Ureteral Stent, N/A: N/A [employer] Stent [employer]er Urology UROLOGICAL Implanted: Qty: 1 on 03/17/2018 by INC. Benigno Millard MD 10/15/2020 [id number] / / [id number] 8.0fr X 26cm [employer] Ureteral Stent, N/A: N/A [employer] Stent [employer] Positioner Urology UROLOGICAL Implanted: Qty: 1 on 03/17/2018 by INCBenigno Rosario MD Procedures Comments Procedure Name Priority Date/Time Associated Diagnosis SURGICAL PATHOLOGY Routine 03/17/2018 REQUEST 1:51 PM CDT FL < 1 HOUR Routine 03/17/2018 12:36 PM CDT TX AN ELECTIVE Routine 03/17/2018 SUPRAGLOTTIC AIRWAY 11:00 AM CDT Procedure Note - Natalia Hinojosa, GETACHEW - 03/17/2018 11:00 AM CDT Airway Date/Time: 03/17/2018 10:54 AM Performed by: NATALIA HINOJOSA Authorized by: JULES FAIR Location: OR Urgency: Elective Resident/C RNA/AA: NATALIA HINOJOSA Performed by: resident/C RNA/AA Preoxygena jessica with 100% O2: Yes C-spine Precaution s Maintained Throughout : Yes Mask Ventilatio n: Not attempted Final Airway Type: Supraglott ic airway Final LMA: Classic LMA Size: 3 Number of Attempts at Approach: 1 ZZESTIMATED GFR Routine 03/17/2018 4:51 AM CDT PROTHROMBIN TIME WITH INR Routine 03/17/2018 4:51 AM CDT HC COMPLETE BLD COUNT Routine 03/17/2018 W/AUTO DIFF 4:51 AM CDT BASIC METABOLIC PANEL Routine 03/17/2018 4:51 AM CDT NM RENAL SCAN WFLOW FUNCT Routine 03/15/2018 SGL INT W/MAG 3 12:03 PM CDT ZZESTIMATED GFR Routine 03/15/2018 7:49 AM CDT BASIC METABOLIC PANEL Routine 03/15/2018 7:49 AM CDT HC COMPLETE BLD COUNT Routine 03/15/2018 W/AUTO DIFF 7:49 AM CDT BLOOD CULTURE, AEROBIC & Routine 03/14/2018 ANAEROBIC 1:28 PM CDT BLOOD CULTURE, AEROBIC & Routine 03/14/2018 ANAEROBIC 1:22 PM CDT URINALYSIS SCREEN AND Routine 03/14/2018 MICROSCOPY, WITH REFLEX 8:30 AM CDT TO CULTURE URINE CULTURE Routine 03/14/2018 8:30 AM CDT GRAM STAIN Routine 03/14/2018 8:30 AM CDT ZZESTIMATED GFR STAT 03/13/2018 11:35 PM CDT B NATRIURETIC PEPTIDE STAT 03/13/2018 11:35 PM CDT TROPONIN STAT 03/13/2018 11:35 PM CDT LIPASE LEVEL STAT 03/13/2018 11:35 PM CDT HEPATIC FUNCTION PANEL STAT 03/13/2018 11:35 PM CDT HC COMPLETE BLD COUNT STAT 03/13/2018 W/AUTO DIFF 11:35 PM CDT BASIC METABOLIC PANEL STAT 03/13/2018 11:[address] RENAL STONE PROTOCOL STAT 03/13/2018 10:24 PM CDT after 08/19/2017 Results * Surgical pathology request (03/17/2018 1:51 PM CDT) [facility] DEPARTMENT OF PATHOLOGY AND GENOMIC MEDICINE Surgical pathology report See link below for PDF Lab [facility] DEPARTMENT OF Report PATHOLOGY AND GENOMIC MEDICINE Result status This is Final Report to [facility] DEPARTMENT OF [id number] PATHOLOGY AND GENOMIC MEDICINE Performing Organization Address City/State/Zipcode Phone Number [facility] DEPARTMENT OF [facility] [place] [address] PATHOLOGY AND GENOMIC MEDICINE * FL < 1 Hour (03/17/2018 12:36 PM CDT) Narrative Performed At EXAMINATION:FL 1 HOUR [facility] CLINICAL HISTORY:Bilateral stent exchange. COMPARISON:None. TECHNIQUE: C-arm fluoroscopy was performed with 2 fluoroscopic spot images taken of the central abdomen and a portion of the upper pelvis upper pelvis in the anterior projection in a narrow field of view in the OR. A total KV of96, and mA of 4.3, and fluoroscopic time of22 seconds was offered to for the procedure. The DAP (dose absorbed product) is: 7245 mGy-cm^2 No contrast was used for the procedure. FINDINGS: The initial image demonstrates bilateral ureteric stents in satisfactory position. IMPRESSION: Satisfactory position of the bilateral ureteric stents. [id number] Procedure Note Hm Interface, Radiology Results Incoming - 03/17/2018 2:12 PM CDT EXAMINATION: FL 1 HOUR CLINICAL HISTORY: Bilateral stent exchange. COMPARISON: None. TECHNIQUE: C-arm fluoroscopy was performed with 2 fluoroscopic spot images taken of the central abdomen and a portion of the upper pelvis upper pelvis in the anterior projection in a narrow field of view in the OR. A total KV of 96, and mA of 4.3, and fluoroscopic time of 22 seconds was offered to Dr. Millard for the procedure. The DAP (dose absorbed product) is: 7245 mGy-cm^2 No contrast was used for the procedure. FINDINGS: The initial image demonstrates bilateral ureteric stents in satisfactory position. IMPRESSION: Satisfactory position of the bilateral ureteric stents. [id number] Performing Organization Address City/[facility] Cent[facility] Phone Number [facility] [address] [place] [address] * Estimated GFR (03/17/2018 4:51 AM CDT) Only the most recent of 3 results within the time period is included. GFR Non Af Amer 63 mL/min/1.73 m2 [facility] DEPARTMENT OF PATHOLOGY AND GENOMIC MEDICINE GFR Af Amer 77 mL/min/1.73 m2 [facility] DEPARTMENT OF Comment: PATHOLOGY AND Chronic kidney disease: <60 GENOMIC MEDICINE mL/min/1.73m2 Kidney failure: <15 mL/min/1.73m2 The estimated GFR is calculated from the IDMS-traceable Modification of Diet in Renal Disease Equation. The accuracy of the calculation is poor when the creatinine is normal. Calculated values >90 mL/min/1.73m2 are not reported. This equation has not been validated in children (<18 years), women, the elderly (>70 years), or ethnic groups other than Caucasians and Americans. Specimen Plasma specimen Performing Organization Address City/State/Zipcode Phone Number [facility] DEPARTMENT OF [facility] [place] [address] [address] [place] [address] PATHOLOGY AND [employer] MEDICINE * Prothrombin time with INR (03/17/2018 4:51 AM CDT) Prothrombin time 12.6 12.0 - 15.0 sec [facility] DEPARTMENT OF PATHOLOGY AND GENOMIC MEDICINE INR 0.93 0.92 - 1.12 [facility] DEPARTMENT OF Comment: PATHOLOGY AND For patients on anticoagulant GENOMIC MEDICINE therapy, reference ranges below: Indication: INR Value Treatment of Venous Thrombosis, 2.0-3.0 pulmonary emboli, or prophylaxis of a venous thrombosis, or systemic emboli. High dose, high risk patients 3.0-4.5 with mechanical valves. NOTE:INR values over 3.0 are sometimes associated with gastrointestinal hemorrhage, especially values over 4.0. Specimen Blood Performing Organization Address City/State/Zipcode Phone Number [facility] DEPARTMENT [facility] [place] [address] PATHOLOGY AND [employer] [facility] * CBC with platelet and differential (03/17/2018 4:51 AM CDT) Only the most recent of 3 results within the time period is included. WBC 7.6 4.2 - 11.0 k/uL [facility] DEPARTMENT OF PATHOLOGY AND GENOMIC MEDICINE RBC 3.93 (L) 4.04 - 5.86 m/uL [facility] DEPARTMENT OF PATHOLOGY AND GENOMIC MEDICINE HGB 10.2 (L) 11.5 - 15.3 g/dL [facility] DEPARTMENT OF PATHOLOGY AND GENOMIC MEDICINE HCT 33.7 (L) 34.0 - 45.0 % [facility] DEPARTMENT OF PATHOLOGY AND GENOMIC MEDICINE MCV 85.8 80.0 - 98.0 fL [facility] DEPARTMENT OF PATHOLOGY AND GENOMIC MEDICINE MCH 26.0 (L) 27.0 - 34.0 pg [facility] DEPARTMENT OF PATHOLOGY AND GENOMIC MEDICINE MCHC 30.3 (L) 31.5 - 36.5 g/dL [facility] DEPARTMENT OF PATHOLOGY AND GENOMIC MEDICINE RDW - SD 46.6 37.0 - 51.0 fL [facility] DEPARTMENT OF PATHOLOGY AND GENOMIC MEDICINE MPV 10.9 (H) 7.4 - 10.4 fL [facility] DEPARTMENT OF PATHOLOGY AND GENOMIC MEDICINE Platelet count 244 150 - 400 k/uL [facility] DEPARTMENT OF PATHOLOGY AND GENOMIC MEDICINE Nucleated RBC 0.00 /100 WBC [facility] DEPARTMENT OF PATHOLOGY AND GENOMIC MEDICINE Neutrophils 60.1 36.0 - 66.0 % [facility] DEPARTMENT OF PATHOLOGY AND GENOMIC MEDICINE Lymphocytes 27.0 24.0 - 44.0 % [facility] DEPARTMENT OF PATHOLOGY AND GENOMIC MEDICINE Monocytes 9.9 (H) 0.0 - 6.0 % [facility] DEPARTMENT OF PATHOLOGY AND GENOMIC MEDICINE Eosinophils 1.8 0.0 - 6.0 % [facility] PATHOLOGY AND GENOMIC MEDICINE Basophils 0.5 0.0 - 1.2 % [facility] PATHOLOGY AND GENOMIC MEDICINE Immature granulocytes 0.7 0.0 - 1.0 % [facility] PATHOLOGY AND GENOMIC MEDICINE Specimen Blood Performing Organization Address City/[facility] Centercode Phone Number [address] [place] [address] PATHOLOGY AND [employer] MEDICINE * Basic metabolic panel (03/17/2018 4:51 AM CDT) Only the most recent of 3 results within the time period is included. Sodium 141 135 - 150 mEq/L [facility] DEPARTMENT OF PATHOLOGY AND GENOMIC MEDICINE Potassium 4.3 3.5 - 5.0 mEq/L [facility] DEPARTMENT OF PATHOLOGY AND GENOMIC MEDICINE Chloride 105 100 - 109 mEq/L [facility] DEPARTMENT OF PATHOLOGY AND GENOMIC MEDICINE CO2 26 24 - 32 mmol/L [facility] DEPARTMENT OF PATHOLOGY AND GENOMIC MEDICINE Anion gap 10@ANIO 7 - 15 mEq/L [facility] DEPARTMENT OF PATHOLOGY AND GENOMIC MEDICINE BUN 17 7 - 18 mg/dL [facility] DEPARTMENT OF PATHOLOGY AND GENOMIC MEDICINE Creatinine 0.9 0.8 - 1.5 mg/dL [facility] DEPARTMENT OF PATHOLOGY AND GENOMIC MEDICINE Glucose 99 65 - 100 mg/dL [facility] DEPARTMENT OF PATHOLOGY AND GENOMIC MEDICINE Calcium 9.2 8.6 - 10.7 mg/dL [facility] DEPARTMENT PATHOLOGY AND GENOMIC MEDICINE Specimen Plasma specimen Performing Organization Address [facility] Centercode Phone Number [address] [place] [address] PATHOLOGY AND [employer] [facility] * NM Renal Scan Wflow Funct Sgl Int W/Mag 3 (03/15/2018 12:03 PM CDT) Narrative Performed At PROCEDURE:NM RENAL SCAN WFLOW FUNCT SGL INT W MAG 3 [facility] INDICATION:Hydronephrosis. TECHNIQUE: The patient was injected with 10 mCi of Tc-99m MAG-3, IV. Dynamic images of the abdomen were acquired for 40 minutes. At 20 minutes, a standard dose of IV lasix was administered. FINDINGS:Perfusion to both kidneys appears normal.Cortical transit time through both kidneys is less than 5 minutes.There is stasis in both kidneys at 20 minutes.There is an indeterminate response to Lasix by the right kidney, with a half-time of emptying of 17 minutes.There is a poor response to Lasix by the left kidney, with a half-time of emptying of 36 minutes. Normal washout is less than 10 minutes. High grade obstruction is suggested if greater than 20 minutes. Between 10 and 20 minutes is indeterminate. Split function:Left kidney 60%, right kidney 40%. IMPRESSION: 1.Probable high-grade obstruction of the left kidney, with probable significant partial obstruction of the right kidney. [facility]-[id number] Procedure Note [facility], Radiology Results Incoming - 03/15/2018 1:06 PM CDT PROCEDURE: NM RENAL SCAN WFLOW FUNCT SGL INT W MAG 3 INDICATION: Hydronephrosis. TECHNIQUE: The patient was injected with 10 mCi of Tc-99m MAG-3, IV. Dynamic images of the abdomen were acquired for 40 minutes. At 20 minutes, a standard dose of IV lasix was administered. FINDINGS: Perfusion to both kidneys appears normal. Cortical transit time through both kidneys is less than 5 minutes. There is stasis in both kidneys at 20 minutes. There is an indeterminate response to Lasix by the right kidney, with a half-time of emptying of 17 minutes. There is a poor response to Lasix by the left kidney, with a half-time of emptying of 36 minutes. Normal washout is less than 10 minutes. High grade obstruction is suggested if greater than 20 minutes. Between 10 and 20 minutes is indeterminate. Split function: Left kidney 60%, right kidney 40%. IMPRESSION: 1. Probable high-grade obstruction of the left kidney, with probable significant partial obstruction of the right kidney. [facility]-[id number] Performing Organization Address City/State/Zipcode Phone Number [facility] [address] [place] [address] * Blood culture, aerobic & anaerobic (03/14/2018 1:28 PM CDT) Only the most recent of 2 results within the time period is included. Blood culture isolate Klebsiella oxytoca [facility] DEPARTMENT OF Aer/Jennie bottles: PATHOLOGY AND The performance GENOMIC MEDICINE characteristics of this assay on this isolate were validated by the Microbiology Laboratory at [facility].This source has not been approved by the U.S. Food and Drug Administration.The results are not intended to be used as the sole means for clinical diagnosis or patient management.The Microbiology Laboratory is authorized under the clinical Laboratory Improvement Amendments of 1988 (CLIA-88) to perform high complexity testing. (A) Comment: Specimen Information Specimen Source: Blood Specimen Site: [facility] Specimen Blood Antibiotic Method Susceptibility Organism Ampicillin CARMENZA >16 mcg/mL: Resistant Klebsiella oxytoca Amoxicillin/Clavulanate CARMENZA 4/2 mcg/mL: Susceptible Klebsiella oxytoca Amikacin CARMENZA <=4 mcg/mL: Susceptible Klebsiella oxytoca Aztreonam CARMENZA <=1 mcg/mL: Susceptible Klebsiella oxytoca Ceftazidime CARMENZA <=0.5 mcg/mL: Susceptible Klebsiella oxytoca Ciprofloxacin CARMENZA <=0.5 mcg/mL: Susceptible Klebsiella oxytoca Ceftriaxone CARMENZA <=0.5 mcg/mL: Susceptible Klebsiella oxytoca Cefuroxime Sodium CARMENZA <=4 mcg/mL: Susceptible Klebsiella oxytoca Cefazolin CARMENZA 16 mcg/mL: Resistant Klebsiella oxytoca Cefepime CARMENZA <=0.5 mcg/mL: Susceptible Klebsiella oxytoca Cefoxitin CARMENZA <=4 mcg/mL: Susceptible Klebsiella oxytoca Gentamicin CARMENZA 1 mcg/mL: Susceptible Klebsiella oxytoca Imipenem CARMENZA <=0.25 mcg/mL: Susceptible Klebsiella oxytoca Levofloxacin CARMENZA <=1 mcg/mL: Susceptible Klebsiella oxytoca Meropenem CARMENZA <=0.125 mcg/mL: Susceptible Klebsiella oxytoca Tobramycin CARMENZA 1 mcg/mL: Susceptible Klebsiella oxytoca Ampicillin/Sulbactam CARMENZA 16/8 mcg/mL: Resistant Klebsiella oxytoca Trimethoprim/Sulfamethoxazole CARMENZA <=0.5/9.5 mcg/mL: Susceptible Klebsiella oxytoca Tetracycline CARMENZA <=1 mcg/mL: Susceptible Klebsiella oxytoca Piperacillin/Tazobactam CARMENZA 4/4 mcg/mL: Susceptible Klebsiella oxytoca Ertapenem CARMENZA <=0.125 mcg/mL: Susceptible Klebsiella oxytoca Tigecycline CARMENZA <=0.5 mcg/mL: Susceptible Klebsiella oxytoca Performing Organization Address City/State/Zipcode Phone Number [facility] DEPARTMENT OF [address] [place] [address] PATHOLOGY AND GENOMIC MEDICINE * Urinalysis screen and microscopy, with reflex to culture (03/14/2018 8:30 AM CDT) Specimen site Clean catch [facility] DEPARTMENT OF PATHOLOGY AND GENOMIC MEDICINE Color, UA Yellow [facility] DEPARTMENT OF PATHOLOGY AND GENOMIC MEDICINE Appearance, UA Turbid [facility] DEPARTMENT OF PATHOLOGY AND GENOMIC MEDICINE Specific gravity, UA 1.010 1.001 - 1.035 [facility] DEPARTMENT OF PATHOLOGY AND GENOMIC MEDICINE pH, UA 8.0 5.0 - 8.5 [facility] DEPARTMENT OF PATHOLOGY AND GENOMIC MEDICINE Protein, UA 2+ (A) Negative [facility] DEPARTMENT OF PATHOLOGY AND GENOMIC MEDICINE Glucose, UA Negative Negative [facility] DEPARTMENT OF PATHOLOGY AND GENOMIC MEDICINE Ketones, UA Negative Negative [facility] DEPARTMENT OF PATHOLOGY AND GENOMIC MEDICINE Bilirubin, UA Negative Negative [facility] DEPARTMENT OF PATHOLOGY AND GENOMIC MEDICINE Blood, UA Moderate (A) Negative [facility] DEPARTMENT OF PATHOLOGY AND GENOMIC MEDICINE Nitrite, UA Negative Negative [facility] DEPARTMENT OF PATHOLOGY AND GENOMIC MEDICINE Urobilinogen, UA Negative <2.0 [facility] DEPARTMENT OF PATHOLOGY AND GENOMIC MEDICINE Leukocyte esterase, UA Large (A) Negative [facility] DEPARTMENT OF PATHOLOGY AND GENOMIC MEDICINE Epithelial cells, UA Many /HPF [facility] DEPARTMENT OF PATHOLOGY AND GENOMIC MEDICINE WBC, UA >200 (H) 0 - 5 /HPF [facility] DEPARTMENT OF PATHOLOGY AND GENOMIC MEDICINE RBC, UA 58 (H) 0 - 5 /HPF [facility] DEPARTMENT OF PATHOLOGY AND GENOMIC MEDICINE Bacteria, UA Few None seen [facility] DEPARTMENT OF PATHOLOGY AND GENOMIC MEDICINE WBC clumps, UA Many (A) [facility] DEPARTMENT OF PATHOLOGY AND GENOMIC MEDICINE Yeast, UA None seen [facility] DEPARTMENT OF PATHOLOGY AND GENOMIC MEDICINE Yeast with pseudohyphae, None seen [facility] DEPARTMENT OF UA PATHOLOGY AND GENOMIC MEDICINE Specimen Urine Performing Organization Address City/State/Zipcode Phone Number [facility] DEPARTMENT OF [address] [place] [address] PATHOLOGY AND GENOMIC MEDICINE * Gram stain (03/14/2018 8:30 AM CDT) Gram stain result Occasional WBC's [facility] DEPARTMENT OF Many Gram positive rods PATHOLOGY AND Many Gram negative rods GENOMIC MEDICINE Comment: Specimen Information Specimen Source: Urine Specimen Site: Clean catch Specimen Urine Performing Organization Address City/State/Zipcode Phone Number [facility] DEPARTMENT OF [address] [place] [address] PATHOLOGY AND GENOMIC MEDICINE * Urine culture (03/14/2018 8:30 AM CDT) Urine culture isolate Klebsiella oxytoca [facility] DEPARTMENT OF >10-5 cfu/ml PATHOLOGY AND The performance GENOMIC MEDICINE characteristics of this assay on this isolate were validated by the Microbiology Laboratory at [facility].This source has not been approved by the U.S. Food and Drug Administration.The results are not intended to be used as the sole means for clinical diagnosis or patient management.The Microbiology Laboratory is authorized under the clinical Laboratory Improvement Amendments of 1988 (CLIA-88) to perform high complexity testing. (A) Comment: Specimen Information Specimen Source: Urine Specimen Site: Clean catch Urine culture isolate Morganella morganii [facility] DEPARTMENT OF >10-5 cfu/ml PATHOLOGY AND The performance GENOMIC MEDICINE characteristics of this assay on this isolate were validated by the Microbiology Laboratory at [facility].This source has not been approved by the U.S. Food and Drug Administration.The results are not intended to be used as the sole means for clinical diagnosis or patient management.The Microbiology Laboratory is authorized under the clinical Laboratory Improvement Amendments of 1988 (CLIA-88) to perform high complexity testing. (A) Urine culture isolate Streptococcus anginosus group [facility] DEPARTMENT OF >10-5 cfu/ml PATHOLOGY AND The performance GENOMIC MEDICINE characteristics of this assay on this isolate were validated by the Microbiology Laboratory at [facility].This source has not been approved by the U.S. Food and Drug Administration.The results are not intended to be used as the sole means for clinical diagnosis or patient management.The Microbiology Laboratory is authorized under the clinical Laboratory Improvement Amendments of 1988 (CLIA-88) to perform high complexity testing. The performance characteristics of this assay on this isolate were validated by the Microbiology Laboratory at [facility].This source has not been approved by the U.S. Food and Drug Administration.The results are not intended to be used as the sole means for clinical diagnosis or patient management.The Microbiology Laboratory is authorized under the clinical Laboratory Improvement Amendments of 1988 (CLIA-88) to perform high complexity testing. (A) Urine culture isolate Mixed Gram positive mahsa [facility] DEPARTMENT OF 10-3 cfu/ml PATHOLOGY AND (A) GENOMIC MEDICINE Specimen Urine Antibiotic Method Susceptibility Organism Ampicillin CARMENZA >16 mcg/mL: Resistant Klebsiella oxytoca Amoxicillin/Clavulanate CARMENZA 16/8 mcg/mL: Resistant Klebsiella oxytoca Amikacin CARMENZA <=4 mcg/mL: Susceptible Klebsiella oxytoca Aztreonam CARMENZA <=1 mcg/mL: Susceptible Klebsiella oxytoca Ceftazidime CARMENZA <=0.5 mcg/mL: Susceptible Klebsiella oxytoca Ciprofloxacin CARMENZA <=0.5 mcg/mL: Susceptible Klebsiella oxytoca Ceftriaxone CARMENZA <=0.5 mcg/mL: Susceptible Klebsiella oxytoca Cefuroxime Sodium CARMENZA >16 mcg/mL: Resistant Klebsiella oxytoca Cefazolin CARMENZA >32 mcg/mL: Resistant Klebsiella oxytoca Cefepime CARMENZA <=0.5 mcg/mL: Susceptible Klebsiella oxytoca Nitrofurantoin CARMENZA >64 mcg/mL: Resistant Klebsiella oxytoca Cefoxitin CARMENZA 8 mcg/mL: Susceptible Klebsiella oxytoca Gentamicin CARMENZA 1 mcg/mL: Susceptible Klebsiella oxytoca Imipenem CARMENZA 0.5 mcg/mL: Susceptible Klebsiella oxytoca Levofloxacin CARMENZA <=1 mcg/mL: Susceptible Klebsiella oxytoca Meropenem CARMENZA <=0.125 mcg/mL: Susceptible Klebsiella oxytoca Tobramycin CARMENZA 1 mcg/mL: Susceptible Klebsiella oxytoca Ampicillin/Sulbactam CARMENZA 16/8 mcg/mL: Resistant Klebsiella oxytoca Trimethoprim/Sulfamethoxazole CAREMNZA <=0.5/9.5 mcg/mL: Susceptible Klebsiella oxytoca Tetracycline CARMENZA >8 mcg/mL: Resistant Klebsiella oxytoca Piperacillin/Tazobactam CARMENZA 4/4 mcg/mL: Susceptible Klebsiella oxytoca Ertapenem CARMENZA <=0.125 mcg/mL: Susceptible Klebsiella oxytoca Tigecycline CARMENZA 1 mcg/mL: Susceptible Klebsiella oxytoca Ampicillin CARMENZA >16 mcg/mL: Resistant Morganella morganii Amoxicillin/Clavulanate CARMENZA >16/8 mcg/mL: Resistant Morganella morganii Amikacin CARMENZA <=4 mcg/mL: Susceptible Morganella morganii Aztreonam CARMENZA <=1 mcg/mL: Susceptible Morganella morganii Ceftazidime CARMENZA <=0.5 mcg/mL: Susceptible Morganella morganii Ciprofloxacin CARMENZA <=0.5 mcg/mL: Susceptible Morganella morganii Ceftriaxone CARMENZA <=0.5 mcg/mL: Susceptible Morganella morganii Cefuroxime Sodium CARMENZA >16 mcg/mL: Resistant Morganella morganii Cefazolin CARMENZA >32 mcg/mL: Resistant Morganella morganii Cefepime CARMENZA <=0.5 mcg/mL: Susceptible Morganella morganii Nitrofurantoin CARMENZA >64 mcg/mL: Resistant Morganella morganii Cefoxitin CARMENZA 8 mcg/mL: Susceptible Morganella morganii Gentamicin CARMENZA 2 mcg/mL: Susceptible Morganella morganii Levofloxacin CARMENZA <=1 mcg/mL: Susceptible Morganella morganii Meropenem CARMENZA <=0.125 mcg/mL: Susceptible Morganella morganii Tobramycin CARMENZA 1 mcg/mL: Susceptible Morganella morganii Ampicillin/Sulbactam CARMENZA 16/8 mcg/mL: Resistant Morganella morganii Trimethoprim/Sulfamethoxazole CARMENZA <=0.5/9.5 mcg/mL: Susceptible Morganella morganii Tetracycline CARMENZA >8 mcg/mL: Resistant Morganella morganii Piperacillin/Tazobactam CARMENZA <=2/4 mcg/mL: Susceptible Morganella morganii Ertapenem CARMENZA <=0.125 mcg/mL: Susceptible Morganella morganii Tigecycline CARMENZA mcg/mL: Resistant Morganella morganii Performing Organization Address City/State/[facility] Phone Number [facility] DEPARTMENT OF [address] [place] [address] PATHOLOGY AND GENOMIC MEDICINE * Troponin (03/13/2018 11:35 PM CDT) Troponin <0.01 0.00 - 0.60 ng/mL [facility] DEPARTMENT OF Comment: PATHOLOGY AND 0.11 - 1.49 GENOMIC MEDICINE ng/mlMay indicate increased risk of acute coronary syndrome. >=1.5 ng/ml Consistent with acute myocardial infarction. The diagnostic value of a single normal or non-diagnostic result is questionable.Serial samples at 2-6 hour intervals are required to rule out acute myocardial injury. Specimen Plasma specimen Performing Organization Address [facility] [place] [address] PATHOLOGY AND [employer] MEDICINE * B natriuretic peptide (03/13/2018 11:35 PM CDT) BNP 13 0 - 100 pg/mL [facility] DEPARTMENT OF PATHOLOGY AND GENOMIC MEDICINE Specimen Blood Performing Organization Address [facility] [place] [address] PATHOLOGY AND [employer] MEDICINE * Lipase level (03/13/2018 11:35 PM CDT) Lipase 118 65 - 230 U/L [facility] DEPARTMENT OF PATHOLOGY AND GENOMIC MEDICINE Specimen Plasma specimen Performing Organization Address [facility] [place] [address] PATHOLOGY AND [employer] MEDICINE * Hepatic function panel (03/13/2018 11:35 PM CDT) Albumin 3.8 3.2 - 5.0 g/dL [facility] DEPARTMENT OF PATHOLOGY AND GENOMIC MEDICINE Total bilirubin 0.5 0.2 - 1.2 mg/dL [facility] DEPARTMENT OF PATHOLOGY AND GENOMIC MEDICINE Bilirubin direct 0.1 0.0 - 0.4 mg/dL [facility] DEPARTMENT OF PATHOLOGY AND GENOMIC MEDICINE Alkaline phosphatase 120 30 - 120 U/L [facility] DEPARTMENT OF PATHOLOGY AND GENOMIC MEDICINE Protein 8.4 (H) 6.3 - 8.2 g/dL [facility] DEPARTMENT OF PATHOLOGY AND GENOMIC MEDICINE ALT 33 30 - 65 U/L [facility] DEPARTMENT OF PATHOLOGY AND GENOMIC MEDICINE AST 26 15 - 37 U/L [facility] DEPARTMENT OF PATHOLOGY AND GENOMIC MEDICINE Specimen Plasma specimen Performing Organization Address City/State/Zipcode Phone Number [facility] [address] [place] [address] PATHOLOGY AND GENOMIC MEDICINE * CT Renal Stone Protocol (03/13/2018 10:24 PM CDT) Narrative Performed At EXAMINATION:CT RENAL STONE PROTOCOL RADIANT CLINICAL HISTORY:bilat flank pain R L hx bilat stents eval stonestent malfunction TECHNIQUE: Multiple axial images of the abdomen and pelvis were obtained without intravenous administration of iodinated contrast. Sagittal and coronal computerized reformatted images were also obtained. The lack of intravenous contrast reduces the sensitivity of detecting solid organ disease. CT imaging was performed with iterative reconstruction technique and/or automated exposure control to reduce radiation dose. COMPARISON:07/12/2016 IMPRESSION: Mild basilar atelectasis/scarring. Trace pericardial effusion. Simple cysts are seen of the liver. Gallbladder, spleen, pancreas, adrenal glands are normal. An internal double-J ureteral stent is seen extending from proximal right ureter to the bladder lumen. In comparison to 07/12/2016, this stent has migrated slightly distally within the ureter. There is massive hydronephrosis and hydroureter just proximal to the stent. These findings are compatible with stent failure. Adjacent perinephric and periureteric fat stranding are seen, suspicious for concomitant urinary tract infection. Within the right ureter, proximal to the stent, punctate ureteral calculi are seen measuring 2.3 mm and 1.8 mm. Additional punctate calculi are seen layering in the dilated pelvis. The largest measures 6.6 x 1.6 mm, and is nonobstructive. Additional nonobstructive calculi are seen within the distended renal collecting system. A left double-J ureteral stent is seen extending from the left renal pelvis to the bladder lumen. There is moderate to marked hydronephrosis and proximal hydroureter, compatible with stent failure. Adjacent fat stranding is seen, and urinary tract infection is a concern. Calculus is seen layering within the distended left renal collecting system. Simple cysts are seen of the left kidney. Bladder wall thickening is seen, suspicious for cystitis and/or muscular hypertrophy. No free intraperitoneal fluid or air. Atherosclerotic vascular calcifications are seen. Appendix is normal. No gastrointestinal tract obstruction. No acute osseous abnormalities. In the right iliopsoas, there is a 2 x 1.8 cm lipoma which remains stable. CONCLUSION: Right internal double-J ureteral stent has migrated slightly distal since 07/12/2016. There is now massive hydronephrosis and hydroureter just proximal to the stent. Findings are compatible with stent failure and probable concomitant urinary tract infection. Nonobstructive ureteral and collecting system calculi are seen on the right as detailed above. A left double-J ureteral stent is seen extending from left renal pelvis to the bladder lumen. Moderate to marked hydronephrosis and hydroureter is seen. These findings are compatible with stent failure and probable concomitant urinary tract infection. Calculus is seen in left renal collecting system. Bladder wall thickening is suspicious for cystitis and/or muscular hypertrophy. [facility]-[id number] Procedure Note [facility], Radiology Results Incoming - 03/13/2018 10:56 PM CDT EXAMINATION: CT RENAL STONE PROTOCOL CLINICAL HISTORY: bilat flank pain R L hx bilat stents eval stone stent malfunction TECHNIQUE: Multiple axial images of the abdomen and pelvis were obtained without intravenous administration of iodinated contrast. Sagittal and coronal computerized reformatted images were also obtained. The lack of intravenous contrast reduces the sensitivity of detecting solid organ disease. CT imaging was performed with iterative reconstruction technique and/or automated exposure control to reduce radiation dose. COMPARISON: 07/12/2016 IMPRESSION: Mild basilar atelectasis/scarring. Trace pericardial effusion. Simple cysts are seen of the liver. Gallbladder, spleen, pancreas, adrenal glands are normal. An internal double-J ureteral stent is seen extending from proximal right ureter to the bladder lumen. In comparison to 07/12/2016, this stent has migrated slightly distally within the ureter. There is massive hydronephrosis and hydroureter just proximal to the stent. These findings are compatible with stent failure. Adjacent perinephric and periureteric fat stranding are seen, suspicious for concomitant urinary tract infection. Within the right ureter, proximal to the stent, punctate ureteral calculi are seen measuring 2.3 mm and 1.8 mm. Additional punctate calculi are seen layering in the dilated pelvis. The largest measures 6.6 x 1.6 mm, and is nonobstructive. Additional nonobstructive calculi are seen within the distended renal collecting system. A left double-J ureteral stent is seen extending from the left renal pelvis to the bladder lumen. There is moderate to marked hydronephrosis and proximal hydroureter, compatible with stent failure. Adjacent fat stranding is seen, and urinary tract infection is a concern. Calculus is seen layering within the distended left renal collecting system. Simple cysts are seen of the left kidney. Bladder wall thickening is seen, suspicious for cystitis and/or muscular hypertrophy. No free intraperitoneal fluid or air. Atherosclerotic vascular calcifications are seen. Appendix is normal. No gastrointestinal tract obstruction. No acute osseous abnormalities. In the right iliopsoas, there is a 2 x 1.8 cm lipoma which remains stable. CONCLUSION: Right internal double-J ureteral stent has migrated slightly distal since 07/12/2016. There is now massive hydronephrosis and hydroureter just proximal to the stent. Findings are compatible with stent failure and probable concomitant urinary tract infection. Nonobstructive ureteral and collecting system calculi are seen on the right as detailed above. A left double-J ureteral stent is seen extending from left renal pelvis to the bladder lumen. Moderate to marked hydronephrosis and hydroureter is seen. These findings are compatible with stent failure and probable concomitant urinary tract infection. Calculus is seen in left renal collecting system. Bladder wall thickening is suspicious for cystitis and/or muscular hypertrophy. [facility]-[id number] Performing Organization Address City/State/Zipcode Phone Number [facility] [address] [place] [address] after 08/19/2017 Insurance Payer Benefit Subscriber ID Type Phone Address Plan / Group RUBI CASILLAS xxxxxxxxxxxx PPO BLUE CROSS Advance Directives Patient has advance care planning documents, and code status on file. For more i nformation, please contact: Rei Degroot [address] [place] [address] Date Inactivated Comments Code Status Date Activated 03/17/2018 10:14 PM Full Code 03/14/2018 12:27 AM Code Status decision reached by: Patient
[2018-08-20 13:10] VITALS: BP 161/74
--- NOTE | 2018-08-20 15:19 | Operative Report ---
DATE OF PROCEDURE: August 20, 2018 PREOPERATIVE DIAGNOSIS: Bilateral hydronephrosis and neurogenic bladder. POSTOPERATIVE DIAGNOSIS: Bilateral hydronephrosis and neurogenic bladder. OPERATION PERFORMED: A cystoscopy and placement of bilateral 7-Macanese 24 cm double-pigtail indwelling ureter stents. ANESTHESIA: General. INDICATIONS: This patient is a 63-year-old black female who has had a long history of bilateral hydronephrosis. When I initially saw her she was in acute renal failure and I put in bilateral stents and her renal failure improved. The patient also has neurogenic bladder dysfunction and has to do clean intermittent self-catheterization. She was found to have bilateral ureteral strictures as well. For further details, please refer to the history and physical. The patient's last stents were placed about 3 months ago. For further details, please refer to the history physical and physical. The procedure was done in the following fashion: DESCRIPTION OF PROCEDURE: The patient was taken to the operating room and placed under general anesthesia and dressed and draped with Hibiclens in lithotomy position in usual fashion. A preliminary scan of the abdomen revealed both stents to be in good position and I did not see any evidence of recurrent kidney stones. The 25-Macanese Olympus cystoscope was inserted, and I could see both distal ends of the stents easily. The patient had severe cystitis cystica. I did not see any evidence of bladder cancer. The stents were somewhat angled up. I grabbed the right stent and pulled it out and this untangled the stents but now I have the problem of getting a guidewire back up into the right ureter. Therefore, what I did was I took a 5-Macanese open-ended catheter and using an angled glide wire I was able to insert the glidewire using the 5-Macanese open-ended catheter to go up the ureter into the kidney. I then advanced the 5-Macanese open-ended catheter over the glidewire, and then removed a glidewire. A retrograde pyelogram was obtained using 50% dilution of contrast media which proved that I was inside the hydronephrotic right kidney. I then reinserted the glidewire and removed the 5-Macanese open-ended catheter leaving the glidewire in position. I then passed a 7-Macanese 24 cm double-pigtail indwelling ureter stent over the glidewire using a pusher. When I could see that the stent was in good position on cystoscopy fluoroscopy, the glidewire was removed. This revealed a good coil of stent within the right kidney within the bladder. I then grabbed the distal end of the left ureteral stent with the flexible grasping forceps and pulled it out through the urethral meatus. I then advanced the angled glidewire up the stent into the kidney. When I could see that this was in good position on fluoroscopy, I removed the left stent leaving the glidewire in position. I then placed the cystoscope sheath over the glidewire and the telescope over the glidewire. My next step was to insert the 5-Macanese open-ended catheter over the glidewire and when this was in good position I removed the glidewire and obtained a retrograde pyelogram with 50% dilution of contrast media. This revealed that I was once again in the hydronephrotic left kidney. I then reinserted the glidewire. The 5-Macanese open-ended ureteral catheter was removed leaving the glidewire in good position. I then advanced a new left 7-Macanese 24 cm double-pigtail indwelling ureter stent over the glidewire with the metal tipped pusher. When I could see the stent was in good position on cystoscopy and fluoroscopy, I removed the glidewire. This revealed another good coil of stent within the bladder and in the kidney. The bladder was emptied and cystoscope withdrawn. Final scan of the abdomen revealed stents to be in good position and no evidence of extravasation. The patient tolerated procedure well and left the operating room in good condition. She will have return appointment to see me again in 2 weeks. Job#: [id number]
== END | disposition home or self-care (01) ==
LOC: OR 08:12
PROVIDERS: ATTEND Urology
DX: N13.0 Hydronephrosis with ureteropelvic junction obstruction (principal); N31.9 Neuromuscular dysfunction of bladder, unspecified; N30.21 Other chronic cystitis with hematuria; R33.9 Retention of urine, unspecified; Z46.6 Encounter for fitting and adjustment of urinary device; I12.9 Hypertensive chronic kidney disease with stage 1 through stage 4 chronic kidney disease, or unspecified chronic kidney disease; N18.9 Chronic kidney disease, unspecified; E78.00 Pure hypercholesterolemia, unspecified; Z87.442 Personal history of urinary calculi
CPT/HCPCS: 36415; 52332; 80053; 85025; 85610; 85730; 88300; C2617; J0694; J1100; J2001; J2250; J2270; J2405; J2704; Q9967

== ENCOUNTER → 2018-11-19 | Day surgery (SDC) | payer BC ==
[2018-11-18 10:48] LABS: BASOPHILS % 0.4 % (0.0-1.0); EOSINOPHILS # (AUTO) 0.2 (0.0-0.4); EOSINOPHILS % 1.8 % (0.0-6.0); HEMATOCRIT 35.3 % (34.2-44.1); HEMOGLOBIN 10.9 g/dL (12.0-16.0); LYMPHOCYTES # (AUTO) 2.3 (1.0-3.2); LYMPHOCYTES % 24.3 % (18.0-39.1); MEAN CORPUSCULAR HEMOGLOBIN 25.9 pg (28-32); MEAN CORPUSCULAR HGB CONC 30.9 g/dL (31-35); MEAN CORPUSCULAR VOLUME 83.8 fL (81-99); MONOCYTES # (AUTO) 0.8 (0.2-0.8); MONOCYTES % 8.8 % (4.4-11.3); NEUTROPHILS % 64.3 % (38.7-80.0); PLATELET COUNT 232 x10e3/uL (140-360); RED BLOOD COUNT 4.21 x10e6/uL (3.6-5.1)
[2018-11-18 10:58] LABS: INR 0.88; PROTHROMBIN TIME 12.8 seconds (11.9-14.5)
[2018-11-18 10:59] LABS: PARTIAL THROMBOPLASTIN TIME 32.7 seconds (23.8-35.5)
--- NOTE | 2018-11-18 11:06 | Diagnostic Imaging Report ---
EXAMINATION: PA and lateral views of the chest. COMPARISON: None CLINICAL HISTORY: Preoperative study for ureteral stent replacement DISCUSSION: The lungs are well-inflated and without focal consolidation, pleural effusion, or pneumothorax. Tortuous thoracic aorta with atherosclerotic calcification. Normal heart size. No pulmonary edema. No acute osseous abnormality. Proximal locking loop or a ureteral stent is partially visualized on the lateral radiograph. IMPRESSION: No acute cardiopulmonary abnormalities. Signed by: Dr. Diego Sewell M.D. on 11/18/2018 11:03 AM
[2018-11-18 11:08] LABS: ALANINE AMINOTRANSFERASE 31 IU/L (0-55); ALBUMIN 3.8 g/dL (3.5-5.0); ALKALINE PHOSPHATASE 108 IU/L (40-150); ANION GAP 13.9 mmol/L (8-16); BLOOD UREA NITROGEN 21 mg/dL (7-26); BUN/CREATININE RATIO 24 (6-25); CALCIUM 9.5 mg/dL (8.4-10.2); CARBON DIOXIDE 21 mmol/L (22-29); CHLORIDE 104 mmol/L (98-107); CREATININE, SERUM 0.86 mg/dL (0.57-1.11); EST GLOMERULAR FILTRATION RATE > 60 ML/MIN (60-); GLUCOSE 91 mg/dL (74-118); POTASSIUM 3.9 mmol/L (3.5-5.1); SODIUM 135 mmol/L (136-145)
[~2018-11-19] MED LIST changes: +HYDROCODONE/APAP 5MG-325MG TAB ONE; -MORPHINE SULFATE 2 MG/ML SYR ONE; +MORPHINE SULFATE INJ 4 MG/ML INJ 1ML ONE; -ONDANSETRON HCL INJ 2 MG/ML VIAL ONE; +ONDANSETRON HCL INJ 2MG/ML 2ML 2 MG/ML VIAL ONE
--- OUTSIDE RECORDS SUMMARY | 2018-11-19 12:15 | XMS REPORT | Clinical Summary ---
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 Name Role Phone System, Provider Not In [...] tract infection without hematuria, site unspecified 03/13/2018 [facility] General Internal Medicine - Encounter 03/17/2018 after 11/18/2017 Family History Medical History Relation Name Comments [...] CANCER SCREENING 1977 COLON CANCER SCREENING 2006 SHINGLES VACCINES (1 of 2006 2) BREAST CANCER SCREENING 03/19/2018 03/19/2016, 09/10/2015, 03/02/2015, Additional history exists INFLUENZA VACCINE 05/05/2018 Implants Device Identifier Shelf Expiration Date Model / Serial / Lot Implanted Type 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 Benigno Millard MD 10/15/2020 [facility]-826-[id number] / / [id number] 8.0fr X 26cm [employer] Ureteral Stent, N/A: N/A [employer] Stent [employer]er Urology UROLOGICAL Implanted: Qty: 1 on 03/17/2018 by INC. Benigno Millard MD Procedures Comments Procedure Name Priority Date/Time Associated Diagnosis SURGICAL PATHOLOGY Routine 03/17/2018 REQUEST 1:51 PM CDT FL < 1 HOUR Routine 03/17/2018 12:36 PM CDT [place] AN ELECTIVE Routine 03/17/2018 SUPRAGLOTTIC AIRWAY 11:00 AM CDT Procedure Note - Natalia Hinojosa CRNA - 03/17/2018 11:00 AM CDT Airway Date/Time: [...] PROTOCOL STAT 03/13/2018 10:24 PM CDT after 11/18/2017 Results * Surgical pathology request (03/17/2018 1:51 PM CDT) [facility] DEPARTMENT OF PATHOLOGY AND GENOMIC MEDICINE Surgical pathology report See link below for PDF Lab [facility] DEPARTMENT OF Report PATHOLOGY AND GENOMIC MEDICINE Result status This is Final Report to [facility] DEPARTMENT OF [id number] PATHOLOGY AND GENOMIC MEDICINE Performing Organization Address City/State/Zipcode Phone Number [facility] DEPARTMENT [facility] [place] [address] PATHOLOGY AND GENOMIC MEDICINE * FL < 1 Hour (03/17/2018 12:36 PM CDT) Narrative Performed At EXAMINATION:[place] 1 HOUR HM [facility] CLINICAL HISTORY:Bilateral stent exchange. COMPARISON:None. TECHNIQUE: [...] Satisfactory position of the bilateral ureteric stents. [facility]-[id number] Procedure Note Hm Interface, Radiology Results Incoming [...] Satisfactory position of the bilateral ureteric stents. [facility]-[id number] Performing Organization Address City/[facility] Phone Number [facility] [address] [place] [address] * Estimated GFR (03/17/2018 4:51 AM CDT) Only the most recent of 3 results within the time period is included. GFR Non Af Amer 63 mL/min/1.73 m2 [facility] DEPARTMENT OF PATHOLOGY AND GENOMIC MEDICINE GFR Af Amer 77 mL/min/1.73 m2 [facility] DEPARTMENT OF Comment: PATHOLOGY AND Chronic kidney [...] Americans. Specimen Plasma specimen Performing Organization Address City/[facility]/Zipcode Phone Number [facility] DEPARTMENT [place] [address] [place] [address] PATHOLOGY AND GENOMIC MEDICINE * Prothrombin time with INR (03/17/2018 4:51 AM CDT) Prothrombin time 12.6 12.0 - 15.0 sec [facility] DEPARTMENT OF PATHOLOGY AND GENOMIC MEDICINE INR 0.93 0.92 - 1.12 [facility] DEPARTMENT OF Comment: PATHOLOGY AND For patients [...] Blood Performing Organization Address City/State/Zipcode Phone Number [place] [phone] [place] [address] [facility] Next audience [facility] * CBC with platelet and differential (03/17/2018 4:51 AM CDT) Only the most recent of 3 results within the time period is included. WBC 7.6 4.2 - 11.0 k/uL [facility] DEPARTMENT OF PATHOLOGY AND GENOMIC MEDICINE RBC 3.93 (L) 4.04 - 5.86 m/uL [facility] DEPARTMENT OF PATHOLOGY AND GENOMIC MEDICINE HGB 10.2 (L) 11.5 - 15.3 g/dL [facility] DEPARTMENT OF PATHOLOGY AND GENOMIC MEDICINE HCT 33.7 (L) 34.0 - 45.0 % [facility] DEPARTMENT OF PATHOLOGY AND GENOMIC MEDICINE MCV 85.8 80.0 - 98.0 fL [facility] DEPARTMENT OF PATHOLOGY AND GENOMIC MEDICINE MCH 26.0 (L) 27.0 - 34.0 pg [facility] DEPARTMENT OF PATHOLOGY AND GENOMIC MEDICINE MCHC 30.3 (L) 31.5 - 36.5 g/dL [facility] DEPARTMENT OF PATHOLOGY AND GENOMIC MEDICINE RDW - SD 46.6 37.0 - 51.0 fL [facility] DEPARTMENT OF PATHOLOGY AND GENOMIC MEDICINE MPV 10.9 (H) 7.4 - 10.4 fL [facility] DEPARTMENT OF PATHOLOGY AND GENOMIC MEDICINE Platelet count 244 150 - 400 k/uL [facility] DEPARTMENT OF PATHOLOGY AND GENOMIC MEDICINE Nucleated RBC 0.00 /100 WBC [facility] DEPARTMENT OF PATHOLOGY AND GENOMIC MEDICINE Neutrophils 60.1 36.0 - 66.0 % [facility] DEPARTMENT OF PATHOLOGY AND GENOMIC MEDICINE Lymphocytes 27.0 24.0 - 44.0 % [facility] DEPARTMENT OF PATHOLOGY AND GENOMIC MEDICINE Monocytes 9.9 (H) 0.0 - 6.0 % [facility] DEPARTMENT OF PATHOLOGY AND GENOMIC MEDICINE Eosinophils 1.8 0.0 - 6.0 % [facility] DEPARTMENT OF PATHOLOGY AND GENOMIC MEDICINE Basophils 0.5 0.0 - 1.2 % [facility] DEPARTMENT OF PATHOLOGY AND GENOMIC MEDICINE Immature granulocytes 0.7 0.0 - 1.0 % [facility] OF PATHOLOGY AND GENOMIC MEDICINE Specimen Blood Performing Organization Address City/[facility] Mex[facility]ode Phone Number [place] [address] [place] [address] PATHOLOGY AND Next audience [facility] * Basic metabolic panel (03/17/2018 4:51 AM CDT) Only the most recent of 3 results within the time period is included. Sodium 141 135 - 150 mEq/L [facility] DEPARTMENT OF PATHOLOGY AND GENOMIC MEDICINE Potassium 4.3 3.5 - 5.0 mEq/L [facility] DEPARTMENT OF PATHOLOGY AND GENOMIC MEDICINE Chloride 105 100 - 109 mEq/L [facility] DEPARTMENT OF PATHOLOGY AND GENOMIC MEDICINE CO2 26 24 - 32 mmol/L [facility] DEPARTMENT OF PATHOLOGY AND GENOMIC MEDICINE Anion gap 10@ANIO 7 - 15 mEq/L [facility] DEPARTMENT OF PATHOLOGY AND GENOMIC MEDICINE BUN 17 7 - 18 mg/dL [facility] DEPARTMENT OF PATHOLOGY AND GENOMIC MEDICINE Creatinine 0.9 0.8 - 1.5 mg/dL [facility] DEPARTMENT OF PATHOLOGY AND GENOMIC MEDICINE Glucose 99 65 - 100 mg/dL [facility] DEPARTMENT OF PATHOLOGY AND GENOMIC MEDICINE Calcium 9.2 8.6 - 10.7 mg/dL [facility] DEPARTMENT OF PATHOLOGY AND GENOMIC MEDICINE Specimen Plasma specimen Performing Organization Address City/[facility] Mex[facility]ode Phone Number [place] [address] [place] [address] PATHOLOGY AND Next audience [facility] * NM Renal Scan Wflow Funct [...] significant partial obstruction of the right kidney. [facility]-[id number] Procedure Note [facility], Radiology Results Incoming - 03/15/2018 1:06 PM [...] significant partial obstruction of the right kidney. [facility]-[id number] Performing Organization Address City/State/Zipcode Phone Number [facility] [address] [place] [address] * Blood culture, aerobic & anaerobic (03/14/2018 1:28 PM CDT) Only the most recent of 2 results within the time period is included. Blood culture isolate Klebsiella oxytoca [facility] DEPARTMENT OF Aer/Jennie bottles: PATHOLOGY AND The performance GENOMIC MEDICINE characteristics of this assay on this isolate were validated by the Microbiology Laboratory at [facility].This source has not been approved by the [...] oxytoca Performing Organization Address City/State/Zipcode Phone Number [facility] DEPARTMENT OF [address] [place] [address] PATHOLOGY AND GENOMIC MEDICINE * Urinalysis screen and microscopy, with reflex to culture (03/14/2018 8:30 AM CDT) Specimen site Clean catch [facility] DEPARTMENT OF PATHOLOGY AND GENOMIC MEDICINE Color, UA Yellow [facility] DEPARTMENT OF PATHOLOGY AND GENOMIC MEDICINE Appearance, UA Turbid [facility] DEPARTMENT OF PATHOLOGY AND GENOMIC MEDICINE Specific gravity, UA 1.010 1.001 - 1.035 [facility] DEPARTMENT OF PATHOLOGY AND GENOMIC MEDICINE pH, UA 8.0 5.0 - 8.5 [facility] DEPARTMENT OF PATHOLOGY AND GENOMIC MEDICINE Protein, UA 2+ (A) Negative [facility] DEPARTMENT OF PATHOLOGY AND GENOMIC MEDICINE Glucose, UA Negative Negative [facility] DEPARTMENT OF PATHOLOGY AND GENOMIC MEDICINE Ketones, UA Negative Negative [facility] DEPARTMENT OF PATHOLOGY AND GENOMIC MEDICINE Bilirubin, UA Negative Negative [facility] DEPARTMENT OF PATHOLOGY AND GENOMIC MEDICINE Blood, UA Moderate (A) Negative [facility] DEPARTMENT OF PATHOLOGY AND GENOMIC MEDICINE Nitrite, UA Negative Negative [facility] DEPARTMENT OF PATHOLOGY AND GENOMIC MEDICINE Urobilinogen, UA Negative <2.0 [facility] DEPARTMENT OF PATHOLOGY AND GENOMIC MEDICINE Leukocyte esterase, UA Large (A) Negative [facility] DEPARTMENT OF PATHOLOGY AND GENOMIC MEDICINE Epithelial cells, UA Many /HPF [facility] DEPARTMENT OF PATHOLOGY AND GENOMIC MEDICINE WBC, UA >200 (H) 0 - 5 /HPF [facility] DEPARTMENT OF PATHOLOGY AND GENOMIC MEDICINE RBC, UA 58 (H) 0 - 5 /HPF [facility] DEPARTMENT OF PATHOLOGY AND GENOMIC MEDICINE Bacteria, UA Few None seen [facility] DEPARTMENT OF PATHOLOGY AND GENOMIC MEDICINE WBC clumps, UA Many (A) [facility] DEPARTMENT OF PATHOLOGY AND GENOMIC MEDICINE Yeast, UA None seen [facility] DEPARTMENT OF PATHOLOGY AND GENOMIC MEDICINE Yeast with pseudohyphae, None seen [facility] DEPARTMENT OF PATHOLOGY AND GENOMIC MEDICINE Specimen Urine Performing Organization Address City/State/Zipcode Phone Number [facility] DEPARTMENT OF [address] [place] [address] PATHOLOGY AND GENOMIC MEDICINE * Gram stain (03/14/2018 8:30 AM CDT) Gram stain result Occasional WBC's [facility] DEPARTMENT OF Many Gram positive rods PATHOLOGY AND Many Gram negative rods GENOMIC MEDICINE Comment: Specimen Information Specimen Source: Urine Specimen Site: Clean catch Specimen Urine Performing Organization Address City/State/Zipcode Phone Number [facility] DEPARTMENT OF [address] [place] [address] PATHOLOGY AND GENOMIC MEDICINE * Urine culture (03/14/2018 8:30 AM CDT) Urine culture isolate Klebsiella oxytoca [facility] DEPARTMENT OF >10-5 cfu/ml PATHOLOGY AND The performance GENOMIC MEDICINE characteristics of this assay on this isolate were validated by the Microbiology Laboratory at [facility].This source has not been approved by the U.S. Food and Drug Administration.The results are not intended to be used as the sole means for clinical diagnosis or patient management.The Microbiology Laboratory is authorized under the clinical Laboratory Improvement Amendments of 1988 (CLIA-88) to perform high complexity testing. (A) Comment: Specimen Information Specimen Source: Urine Specimen Site: Clean catch Urine culture isolate Morganella morganii [facility] DEPARTMENT OF >10-5 cfu/ml PATHOLOGY AND The performance GENOMIC MEDICINE characteristics of this assay on this isolate were validated by the Microbiology Laboratory at [facility].This source has not been approved by the U.S. Food and Drug Administration.The results are not intended to be used as the sole means for clinical diagnosis or patient management.The Microbiology Laboratory is authorized under the clinical Laboratory Improvement Amendments of 1988 (CLIA-88) to perform high complexity testing. (A) Urine culture isolate Streptococcus anginosus group [facility] DEPARTMENT OF >10-5 cfu/ml PATHOLOGY AND The performance GENOMIC MEDICINE characteristics of this assay on this isolate were validated by the Microbiology Laboratory at [facility].This source has not been approved by the U.S. Food and Drug Administration.The results are not intended to be used as the sole means for clinical diagnosis or patient management.The Microbiology Laboratory is authorized under the clinical Laboratory Improvement Amendments of 1988 (CLIA-88) to perform high complexity testing. The performance characteristics of this assay on this isolate were validated by the Microbiology Laboratory at [facility].This source has not been approved by the U.S. Food and Drug Administration.The results are not intended to be used as the sole means for clinical diagnosis or patient management.The Microbiology Laboratory is authorized under the clinical Laboratory Improvement Amendments of 1988 (CLIA-88) to perform high complexity testing. (A) Urine culture isolate Mixed Gram positive mahsa [facility] DEPARTMENT OF 10-3 cfu/ml PATHOLOGY AND [...] CARMENZA 1 mcg/mL: Susceptible Klebsiella oxytoca Imipenem CARMNEZA 0.5 mcg/mL: Susceptible Klebsiella oxytoca Levofloxacin CARMENZA [...] mcg/mL: Resistant Morganella morganii Performing Organization Address City/[facility]ode Phone Number [facility] DEPARTMENT OF [address] [place] [address] PATHOLOGY AND GENOMIC MEDICINE * Troponin (03/13/2018 11:35 PM CDT) Troponin <0.01 0.00 - 0.60 ng/mL [facility] DEPARTMENT OF Comment: PATHOLOGY AND 0.11 - 1.49 GENOMIC MEDICINE ng/mlMay indicate increased risk of acute coronary syndrome. >=1.5 ng/ml Consistent with acute myocardial infarction. The diagnostic value of a single normal or non-diagnostic result is questionable.Serial samples at 2-6 hour intervals are required to rule out acute myocardial injury. Specimen Plasma specimen Performing Organization Address [place]/[facility] [place] [address] PATHOLOGY AND Next audience MEDICINE * B natriuretic peptide (03/13/2018 11:35 PM CDT) BNP 13 0 - 100 pg/mL [facility] DEPARTMENT OF PATHOLOGY AND GENOMIC MEDICINE Specimen Blood Performing Organization Address [place]/[facility] [place] [address] PATHOLOGY AND GENOMIC MEDICINE * Lipase level (03/13/2018 11:35 PM CDT) Lipase 118 65 - 230 U/L [facility] DEPARTMENT OF PATHOLOGY AND GENOMIC MEDICINE Specimen Plasma specimen Performing Organization Address [place]/[facility] [place] [address] PATHOLOGY AND Next audience MEDICINE * Hepatic function panel (03/13/2018 11:35 PM CDT) Albumin 3.8 3.2 - 5.0 g/dL [facility] DEPARTMENT OF PATHOLOGY AND GENOMIC MEDICINE Total bilirubin 0.5 0.2 - 1.2 mg/dL [facility] DEPARTMENT OF PATHOLOGY AND GENOMIC MEDICINE Bilirubin direct 0.1 0.0 - 0.4 mg/dL [facility] DEPARTMENT OF PATHOLOGY AND GENOMIC MEDICINE Alkaline phosphatase 120 30 - 120 U/L [facility] DEPARTMENT OF PATHOLOGY AND GENOMIC MEDICINE Protein 8.4 (H) 6.3 - 8.2 g/dL [facility] DEPARTMENT OF PATHOLOGY AND GENOMIC MEDICINE ALT 33 30 - 65 U/L [facility] DEPARTMENT OF PATHOLOGY AND GENOMIC MEDICINE AST 26 15 - 37 U/L [facility] DEPARTMENT OF PATHOLOGY AND GENOMIC MEDICINE Specimen Plasma specimen Performing Organization Address City/State/Zipcode Phone Number [facility] [address] [place] [address] PATHOLOGY AND GENOMIC MEDICINE * CT Renal [...] is suspicious for cystitis and/or muscular hypertrophy. [facility]-[id number] Procedure Note [facility], Radiology Results Incoming - 03/13/2018 10:56 PM [...] is suspicious for cystitis and/or muscular hypertrophy. [facility]-[id number] Performing Organization Address City/State/Zipcode Phone Number [address] [place] [address] after 11/18/2017 Insurance Payer Benefit Subscriber ID Type Phone Address Plan / Group BCBS SONJA xxxxxxxxxxxx PPO [facility] Advance Directives Patient has advance care planning documents, and code status on file. For more i nformation, please contact: Rei Degroot [address] [place] [address] Date Inactivated Comments Code Status Date Activated 03/17/2018 10:14 PM Full Code 03/14/2018 12:27 AM Code Status decision reached by: Patient
--- NOTE | 2018-11-19 16:00 | Operative Report ---
DATE OF PROCEDURE: November 19, 2018 PREOPERATIVE DIAGNOSES 1. Bilateral hydronephrosis. 2. Bilateral ureteral strictures. 3. Cystitis cystica and neurogenic bladder dysfunction. POSTOPERATIVE DIAGNOSES 1. Bilateral hydronephrosis. 2. Bilateral ureteral strictures. 3. Cystitis cystica and neurogenic bladder dysfunction. OPERATIONS PERFORMED 1. Cystoscopy. 2. Replacement of bilateral 7-Anguillan, 24 cm double-pigtail indwelling ureter stents. ANESTHESIA: General. INDICATIONS: This patient is a 63-year-old black female with a long history of bilateral ureteral strictures, bilateral hydronephrosis and neurogenic bladder dysfunction. I have been changing her stents out every 3 months for several years. The patient is now due for a cystoscopy and replacement of her stents. She has been on clean intermittent self-catheterization for her neurogenic bladder dysfunction. For further details, please refer to the history and physical. The procedure was done the following fashion. The patient was taken to the operating room and placed under general anesthesia, dressed with Hibiclens in the lithotomy position in the usual fashion. Preliminary scan of the abdomen revealed that the stents were in good position. The patient had a moderate cystocele. The 25-Anguillan Olympus cystoscope was inserted. Using the 30-degree oblique lens, I inspected the bladder. There was severe cystitis cystica present. I could see both stents. There was no evidence of malignancy. No stones in the bladder. I then used a flexible grasping forceps and grabbed the distal end of the left ureteral stent, and pulled it out through the urethral meatus. I then made an attempt to pass guidewires up through the stent. Ultimately, I was able to pass a straight SureGlide guidewire through the stent up into the left kidney. Once this was accomplished, the stent was removed. I then passed the cystoscope over the guidewire, and then inserted a 5-Anguillan open-ended catheter over the Glidewire and removed Glidewire and obtained a retrograde pyelogram that showed hydronephrosis present. I then reinserted the Glidewire, and removed the 6-Anguillan open-ended catheter. Next, an attempt was made to try and pass an Olympus 7-Anguillan, 24 cm double-pigtail stent over the Glidewire. During the process of this, the Glidewire fell out. Therefore, I had to exchange engineer to the 70-degree oblique lens with the flipper bridge. Using an angled guidewire and the 5-Anguillan open-ended catheter, I was able to maneuver the angled guidewire to go up into the left kidney. Once this was in the left kidney in good position, I then removed the 5-Anguillan open-ended catheter. Then we were able to successfully pass the Olympus 7-Anguillan, 24 cm double-pigtail indwelling ureter stent over the Glidewire with a pusher. Once I could see that was in good position on cystoscopy and fluoroscopy, the guidewire was removed. This revealed the stent to be in good position. I then paid attention to the right side now that the left side had been done. Once again, the right ureteral catheter's distal end was grabbed with flexible grasping forceps and pulled out through the urethral meatus. It was unable to insert a guidewire through the stent. Therefore, the stent on the right side was removed. Then using the 6-Anguillan open-ended catheter, the flipper bridge and the angled Glidewire, I was able to get this to go up the right kidney. Once this was accomplished, I then passed the 5-Anguillan open-ended catheter over the Glidewire. I removed the Glidewire and obtained a retrograde pyelogram, which revealed the hydronephrosis. I then reinserted the Glidewire and removed the 5-Anguillan open-ended catheter. I then passed a new 7-Anguillan, 24 cm double-pigtail indwelling ureter stent over the Glidewire into the right kidney. When I could see the stent was in good position on cystoscopy and fluoroscopy, the Glidewire was removed. At the end of the procedure, both stents were in good position. There was no evidence of extravasation. The bladder was emptied and cystoscope withdrawn. The patient tolerated the procedure well and left the operating room in good condition. She will have a return appointment to see me again in 2 weeks. Job#: [id number] [place]
[2018-11-19 17:10] VITALS: BP 159/88
== END | disposition home or self-care (01) ==
LOC: OR 12:10
PROVIDERS: ATTEND Urology
DX: N13.1 Hydronephrosis with ureteral stricture, not elsewhere classified (principal); Z46.6 Encounter for fitting and adjustment of urinary device; N31.9 Neuromuscular dysfunction of bladder, unspecified; Q62.39 Other obstructive defects of renal pelvis and ureter; N30.21 Other chronic cystitis with hematuria; I12.9 Hypertensive chronic kidney disease with stage 1 through stage 4 chronic kidney disease, or unspecified chronic kidney disease; N18.9 Chronic kidney disease, unspecified; A41.89 Other specified sepsis; R00.1 Bradycardia, unspecified; E78.00 Pure hypercholesterolemia, unspecified; Z01.810 Encounter for preprocedural cardiovascular examination; Z01.812 Encounter for preprocedural laboratory examination; Z01.818 Encounter for other preprocedural examination; Z87.442 Personal history of urinary calculi; Z84.1 Family history of disorders of kidney and ureter
CPT/HCPCS: 36415; 52332; 71046; 74420; 80053; 85025; 85610; 85730; 88300; 93005; C1758; C2617; J0694; J1100; J2001; J2250; J2270; J2405; J2704; Q9967

== ENCOUNTER → 2019-02-18 | Day surgery (SDC) | payer OTHER ==
[2019-02-17 13:07] LABS: BASOPHILS % 0.4 % (0.0-1.0); EOSINOPHILS # (AUTO) 0.2 (0.0-0.4); EOSINOPHILS % 2.4 % (0.0-6.0); HEMATOCRIT 35.2 % (34.2-44.1); HEMOGLOBIN 10.6 g/dL (12.0-16.0); LYMPHOCYTES # (AUTO) 2.1 (1.0-3.2); LYMPHOCYTES % 26.5 % (18.0-39.1); MEAN CORPUSCULAR HEMOGLOBIN 25.5 pg (28-32); MEAN CORPUSCULAR HGB CONC 30.1 g/dL (31-35); MEAN CORPUSCULAR VOLUME 84.8 fL (81-99); MONOCYTES # (AUTO) 0.7 (0.2-0.8); MONOCYTES % 9.1 % (4.4-11.3); NEUTROPHILS # (AUTO) 4.8 (2.1-6.9); PLATELET COUNT 280 x10e3/uL (140-360); RED BLOOD COUNT 4.15 x10e6/uL (3.6-5.1); RED CELL DISTRIBUTION WIDTH 15.7 % (11.7-14.4)
[2019-02-17 13:25] LABS: INR 0.92; PARTIAL THROMBOPLASTIN TIME 32.6 seconds (23.8-35.5); PROTHROMBIN TIME 12.9 seconds (11.9-14.5)
[2019-02-17 13:34] LABS: ALANINE AMINOTRANSFERASE 57 IU/L (0-55); ALBUMIN 3.6 g/dL (3.5-5.0); ALBUMIN/GLOBULIN RATIO 0.9 (0.8-2.0); ALKALINE PHOSPHATASE 154 IU/L (40-150); BLOOD UREA NITROGEN 21 mg/dL (7-26); BUN/CREATININE RATIO 21 (6-25); CALCIUM 9.8 mg/dL (8.4-10.2); CARBON DIOXIDE 25 mmol/L (22-29); CHLORIDE 105 mmol/L (98-107); CREATININE, SERUM 0.98 mg/dL (0.57-1.11); EST GLOMERULAR FILTRATION RATE > 60 ML/MIN (60-); GLUCOSE 93 mg/dL (74-118); SODIUM 138 mmol/L (136-145)
[~2019-02-18] MED LIST changes: +CEFOXITIN 1GM/ D5W 50ML 50 ML IV ONE; -CEFOXITIN SOD 1 GM VIAL ONE; +DESFLURANE 240 ML BTL INH ONE; -HYDROCODONE/APAP 5MG-325MG TAB ONE; +MICARDIS80 MG PO; -MORPHINE SULFATE INJ 4 MG/ML INJ 1ML ONE
--- OUTSIDE RECORDS SUMMARY | 2019-02-18 08:07 | XMS REPORT | Clinical Summary ---
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 Name Role Phone System, Provider Not In [...] tract infection without hematuria, site unspecified 03/13/2018 [facility] General Internal Medicine - Encounter 03/17/2018 after 02/17/2018 Family History Medical History Relation Name Comments [...] 1977 COLON CANCER SCREENING 2006 SHINGLES VACCINES (#1) 2006 BREAST CANCER SCREENING 03/19/2018 03/19/2016, 09/10/2015, 03/02/2015, Additional history exists INFLUENZA VACCINE 05/05/2019 Implants Device Identifier Shelf Expiration Date Model / Serial / Lot Implanted Type Area Manufactur er 10/15/2020 [id number]-826-[id number] / / [id number] 8.0fr X 26cm [employer] Firm Ureteral Stent, N/A: N/A COOK Stent And Positioner Urology UROLOGICAL Implanted: Qty: 1 on 03/17/2018 by INC. Benigno Millard MD 10/15/2020 [id number]-826-[id number] / / [id number] 8.0fr X 26cm [employer] Firm Ureteral Stent, N/A: N/A COOK Stent And Positioner Urology UROLOGICAL Implanted: Qty: 1 on 03/17/2018 by INC. Benigno Millard MD Procedures Comments Procedure Name Priority Date/Time Associated Diagnosis SURGICAL PATHOLOGY Routine 03/17/2018 REQUEST 1:51 PM CDT FL < 1 HOUR Routine 03/17/2018 12:36 PM CDT NM AN ELECTIVE Routine 03/17/2018 SU[address] AIRWAY 11:00 [...] PROTOCOL STAT 03/13/2018 10:24 PM CDT after 02/17/2018 Results * Surgical pathology request (03/17/2018 1:51 PM CDT) [facility] DEPARTMENT OF PATHOLOGY AND GENOMIC MEDICINE Surgical pathology report See link below for PDF Lab [facility] DEPARTMENT OF Report PATHOLOGY AND GENOMIC MEDICINE Result status This is Final Report to [facility] DEPARTMENT OF [id number] PATHOLOGY AND GENOMIC MEDICINE Performing Organization Address City/State/Zipcode Phone Number [facility] DEPARTMENT OF [facility] [place] [address] PATHOLOGY AND GENOMIC MEDICINE * [place] < [...] Satisfactory position of the bilateral ureteric stents. [facility]-[id number] Procedure Note Interface, Radiology Results Incoming - 03/17/2018 2:12 [...] Satisfactory position of the bilateral ureteric stents. [facility]-[id number] Performing Organization Address City/State/Zipcode Phone Number [facility] [address] [place] [address] * Estimated GFR (03/17/2018 4:51 AM CDT) Only the most recent of 3 results within the time period is included. GFR Non Af Amer 63 mL/min/1.73 m2 [facility] DEPARTMENT OF PATHOLOGY AND GENOMIC MEDICINE GFR Af Amer 77 mL/min/1.73 m2 [facility] DEPARTMENT OF Comment: PATHOLOGY [...] specimen Performing Organization Address City/State/Zipcode Phone Number [facility] DEPARTMENT OF [facility] [place] [address] PATHOLOGY AND GENOMIC MEDICINE * Prothrombin time with INR (03/17/2018 4:51 AM CDT) Prothrombin time 12.6 12.0 - 15.0 sec [facility] DEPARTMENT OF PATHOLOGY AND GENOMIC MEDICINE INR 0.93 0.92 - 1.12 [facility] DEPARTMENT OF Comment: PATHOLOGY [...] Blood Performing Organization Address City/State/Zipcode Phone Number [place] [address] [place] [address] [facility] [employer] [facility] * CBC with platelet and differential (03/17/2018 4:51 AM CDT) Only the most recent of 3 results within the time period is included. WBC 7.6 4.2 - 11.0 k/uL [facility] DEPARTMENT OF PATHOLOGY AND GENOMIC MEDICINE RBC 3.93 (L) 4.04 - 5.86 m/uL [facility] DEPARTMENT OF PATHOLOGY AND GENOMIC MEDICINE HGB 10.2 (L) 11.5 - 15.3 g/dL [facility] DEPARTMENT OF PATHOLOGY AND GENOMIC MEDICINE HCT 33.7 (L) 34.0 - 45.0 % [facility] DEPARTMENT OF PATHOLOGY AND GENOMIC MEDICINE MCV 85.8 80.0 - 98.0 fL [facility] DEPARTMENT OF PATHOLOGY AND GENOMIC MEDICINE MCH 26.0 (L) 27.0 - 34.0 pg [facility] DEPARTMENT OF PATHOLOGY AND GENOMIC MEDICINE MCHC 30.3 (L) 31.5 - 36.5 g/dL [facility] DEPARTMENT OF PATHOLOGY AND GENOMIC MEDICINE RDW - SD 46.6 37.0 - 51.0 fL [facility] DEPARTMENT OF PATHOLOGY AND GENOMIC MEDICINE MPV 10.9 (H) 7.4 - 10.4 fL [facility] DEPARTMENT OF PATHOLOGY AND GENOMIC MEDICINE Platelet count 244 150 - 400 k/uL [facility] DEPARTMENT OF PATHOLOGY AND GENOMIC MEDICINE Nucleated RBC 0.00 /100 WBC [facility] DEPARTMENT OF PATHOLOGY AND GENOMIC MEDICINE Neutrophils 60.1 36.0 - 66.0 % [facility] DEPARTMENT OF PATHOLOGY AND GENOMIC MEDICINE Lymphocytes 27.0 24.0 - 44.0 % [facility] DEPARTMENT OF PATHOLOGY AND GENOMIC MEDICINE Monocytes 9.9 (H) 0.0 - 6.0 % [facility] DEPARTMENT OF PATHOLOGY AND GENOMIC MEDICINE Eosinophils 1.8 0.0 - 6.0 % [facility] DEPARTMENT OF PATHOLOGY AND GENOMIC MEDICINE Basophils 0.5 0.0 - 1.2 % [facility] DEPARTMENT OF PATHOLOGY AND GENOMIC MEDICINE Immature granulocytes 0.7 0.0 - 1.0 % [facility] OF PATHOLOGY AND GENOMIC MEDICINE Specimen Blood Performing Organization Address City/[facility] Cent[facility]ode Phone Number [place] [address] [place] [address] PATHOLOGY AND [employer] [facility] * Basic metabolic panel (03/17/2018 4:51 AM CDT) Only the most recent of 3 results within the time period is included. Sodium 141 135 - 150 mEq/L [facility] DEPARTMENT OF PATHOLOGY AND GENOMIC MEDICINE Potassium 4.3 3.5 - 5.0 mEq/L [facility] DEPARTMENT OF PATHOLOGY AND GENOMIC MEDICINE Chloride 105 100 - 109 mEq/L [facility] DEPARTMENT OF PATHOLOGY AND GENOMIC MEDICINE CO2 26 24 - 32 mmol/L [facility] DEPARTMENT OF PATHOLOGY AND GENOMIC MEDICINE Anion gap 10@ANIO 7 - 15 mEq/L [facility] DEPARTMENT OF PATHOLOGY AND GENOMIC MEDICINE BUN 17 7 - 18 mg/dL [facility] DEPARTMENT OF PATHOLOGY AND GENOMIC MEDICINE Creatinine 0.9 0.8 - 1.5 mg/dL [facility] DEPARTMENT OF PATHOLOGY AND GENOMIC MEDICINE Glucose 99 65 - 100 mg/dL [facility] DEPARTMENT OF PATHOLOGY AND GENOMIC MEDICINE Calcium 9.2 8.6 - 10.7 mg/dL [facility] DEPARTMENT OF PATHOLOGY AND GENOMIC MEDICINE Specimen Plasma specimen Performing Organization Address City/[facility] Centercode Phone Number [place] [address] [place] [address] PATHOLOGY AND [employer] [facility] * NM Renal Scan Wflow Funct Sgl [...] significant partial obstruction of the right kidney. [facility]-[id number] Procedure Note [facility], Radiology Results Incoming - 03/15/2018 [...] significant partial obstruction of the right kidney. [facility]-[id number] Performing Organization Address City/State/Zipcode Phone Number [facility] [address] [place] [address] * Blood culture, aerobic & anaerobic (03/14/2018 1:28 PM CDT) Only the most recent of 2 results within the time period is included. Blood culture isolate Klebsiella oxytoca [facility] DEPARTMENT OF Aer/Jennie bottles: PATHOLOGY AND The performance GENOMIC MEDICINE characteristics of this assay on this isolate were validated by the Microbiology Laboratory at [facility].This source has not been approved by [...] oxytoca Performing Organization Address City/State/Zipcode Phone Number [facility] DEPARTMENT OF [address] [place] [address] PATHOLOGY AND GENOMIC MEDICINE * Urinalysis screen and microscopy, with reflex to culture (03/14/2018 8:30 AM CDT) Specimen site Clean catch [facility] DEPARTMENT OF PATHOLOGY AND GENOMIC MEDICINE Color, UA Yellow [facility] DEPARTMENT OF PATHOLOGY AND GENOMIC MEDICINE Appearance, UA Turbid [facility] DEPARTMENT OF PATHOLOGY AND GENOMIC MEDICINE Specific gravity, UA 1.010 1.001 - 1.035 [facility] DEPARTMENT OF PATHOLOGY AND GENOMIC MEDICINE pH, UA 8.0 5.0 - 8.5 [facility] DEPARTMENT OF PATHOLOGY AND GENOMIC MEDICINE Protein, UA 2+ (A) Negative [facility] DEPARTMENT OF PATHOLOGY AND GENOMIC MEDICINE Glucose, UA Negative Negative [facility] DEPARTMENT OF PATHOLOGY AND GENOMIC MEDICINE Ketones, UA Negative Negative [facility] DEPARTMENT OF PATHOLOGY AND GENOMIC MEDICINE Bilirubin, UA Negative Negative [facility] DEPARTMENT OF PATHOLOGY AND GENOMIC MEDICINE Blood, UA Moderate (A) Negative [facility] DEPARTMENT OF PATHOLOGY AND GENOMIC MEDICINE Nitrite, UA Negative Negative [facility] DEPARTMENT OF PATHOLOGY AND GENOMIC MEDICINE Urobilinogen, UA Negative <2.0 [facility] DEPARTMENT OF PATHOLOGY AND GENOMIC MEDICINE Leukocyte esterase, UA Large (A) Negative [facility] DEPARTMENT OF PATHOLOGY AND GENOMIC MEDICINE Epithelial cells, UA Many /HPF [facility] DEPARTMENT OF PATHOLOGY AND GENOMIC MEDICINE WBC, UA >200 (H) 0 - 5 /HPF [facility] DEPARTMENT OF PATHOLOGY AND GENOMIC MEDICINE RBC, UA 58 (H) 0 - 5 /HPF [facility] DEPARTMENT OF PATHOLOGY AND GENOMIC MEDICINE Bacteria, UA Few None seen [facility] DEPARTMENT OF PATHOLOGY AND GENOMIC MEDICINE WBC clumps, UA Many (A) [facility] DEPARTMENT OF PATHOLOGY AND GENOMIC MEDICINE Yeast, UA None seen [facility] DEPARTMENT OF PATHOLOGY AND GENOMIC MEDICINE Yeast with pseudohyphae, None seen [facility] DEPARTMENT OF UA PATHOLOGY AND GENOMIC MEDICINE Specimen Urine Performing Organization Address City/State/Zipcode Phone Number [facility] DEPARTMENT OF [address] [place] [address] PATHOLOGY AND GENOMIC MEDICINE * Gram stain (03/14/2018 8:30 AM CDT) Gram stain result Occasional WBC's [facility] DEPARTMENT OF Many Gram positive rods PATHOLOGY AND Many Gram negative rods GENOMIC MEDICINE Comment: Specimen Information Specimen Source: Urine Specimen Site: Clean catch Specimen Urine Performing Organization Address City/State/Zipcode Phone Number [facility] DEPARTMENT OF [address] [place] [address] PATHOLOGY AND GENOMIC MEDICINE * Urine culture (03/14/2018 8:30 AM CDT) Urine culture isolate Klebsiella oxytoca [facility] DEPARTMENT OF >10-5 cfu/ml PATHOLOGY AND The performance GENOMIC MEDICINE characteristics of this assay on this isolate were validated by the Microbiology Laboratory at [facility].This source has not been approved by [...] Clean catch Urine culture isolate Morganella morganii [facility] DEPARTMENT OF >10-5 cfu/ml PATHOLOGY AND The performance GENOMIC MEDICINE characteristics of this assay on this isolate were validated by the Microbiology Laboratory at [facility].This source has not been approved by the U.S. Food and Drug Administration.The results are not intended to be used as the sole means for clinical diagnosis or patient management.The Microbiology Laboratory is authorized under the clinical Laboratory Improvement Amendments of 1988 (CLIA-88) to perform high complexity testing. (A) Urine culture isolate Streptococcus anginosus group [facility] DEPARTMENT OF >10-5 cfu/ml PATHOLOGY AND The performance GENOMIC MEDICINE characteristics of this assay on this isolate were validated by the Microbiology Laboratory at [facility].This source has not been approved by [...] were validated by the Microbiology Laboratory at [facility].This source has not been approved by the U.S. Food and Drug Administration.The results are not intended to be used as the sole means for clinical diagnosis or patient management.The Microbiology Laboratory is authorized under the clinical Laboratory Improvement Amendments of 1988 (CLIA-88) to perform high complexity testing. (A) Urine culture isolate Mixed Gram positive mahsa [facility] DEPARTMENT OF 10-3 cfu/ml PATHOLOGY AND (A) [...] mcg/mL: Resistant Morganella morganii Performing Organization Address City/[facility] Centercode Phone Number [facility] DEPARTMENT OF [address] [place] [address] PATHOLOGY AND GENOMIC MEDICINE * Troponin (03/13/2018 11:35 PM CDT) Troponin <0.01 0.00 - 0.60 ng/mL [facility] DEPARTMENT OF Comment: PATHOLOGY AND 0.11 - 1.49 GENOMIC MEDICINE ng/mlMay indicate increased risk of acute coronary syndrome. >=1.5 ng/ml Consistent with acute myocardial infarction. The diagnostic value of a single normal or non-diagnostic result is questionable.Serial samples at 2-6 hour intervals are required to rule out acute myocardial injury. Specimen Plasma specimen Performing Organization Address [facility] [place] [address] PATHOLOGY AND [employer] MEDICINE * B natriuretic peptide (03/13/2018 11:35 PM CDT) BNP 13 0 - 100 pg/mL [facility] DEPARTMENT OF PATHOLOGY AND [employer] MEDICINE Specimen Blood Performing Organization Address [facility] [place] [address] PATHOLOGY AND [employer] MEDICINE * Lipase level (03/13/2018 11:35 PM CDT) Lipase 118 65 - 230 U/L [facility] DEPARTMENT OF PATHOLOGY AND GENOMIC MEDICINE Specimen Plasma specimen Performing Organization Address [facility] [place] [address] PATHOLOGY AND [employer] MEDICINE * Hepatic function panel (03/13/2018 11:35 PM CDT) Albumin 3.8 3.2 - 5.0 g/dL [facility] DEPARTMENT OF PATHOLOGY AND GENOMIC MEDICINE Total bilirubin 0.5 0.2 - 1.2 mg/dL [facility] DEPARTMENT OF PATHOLOGY AND GENOMIC MEDICINE Bilirubin direct 0.1 0.0 - 0.4 mg/dL [facility] DEPARTMENT OF PATHOLOGY AND GENOMIC MEDICINE Alkaline phosphatase 120 30 - 120 U/L [facility] DEPARTMENT OF PATHOLOGY AND GENOMIC MEDICINE Protein 8.4 (H) 6.3 - 8.2 g/dL [facility] DEPARTMENT OF PATHOLOGY AND GENOMIC MEDICINE ALT 33 30 - 65 U/L [facility] DEPARTMENT OF PATHOLOGY AND GENOMIC MEDICINE AST 26 15 - 37 U/L [facility] DEPARTMENT OF PATHOLOGY AND GENOMIC MEDICINE Specimen Plasma specimen Performing Organization Address City/State/Zipcode Phone Number [facility] [address] [place] [address] PATHOLOGY AND GENOMIC MEDICINE * CT Renal [...] is suspicious for cystitis and/or muscular hypertrophy. [facility]-[id number] Procedure Note [facility], Radiology Results Incoming - 03/13/2018 [...] is suspicious for cystitis and/or muscular hypertrophy. [facility]-[id number] Performing Organization Address City/State/Zipcode Phone Number [facility] [address] [place] [address] after 02/17/2018 Insurance Payer Benefit Subscriber ID Type Phone Address Plan / Group BCBS SONJA xxxxxxxxxxxx O [facility] Advance Directives Patient has advance care planning documents, and code status on file. For more i nformation, please contact: Rei Degroot [address] [place] [address] Date Inactivated Comments Code Status Date Activated 03/17/2018 10:14 PM Full Code 03/14/2018 12:27 AM Code Status decision reached by: Patient
[2019-02-18 11:50] VITALS: BP 135/69
--- NOTE | 2019-02-18 17:31 | Operative Report ---
DATE OF PROCEDURE: 02/18/2019 SURGEON: Orestes Alberto MD PREOPERATIVE DIAGNOSES: Bilateral hydronephrosis and bilateral ureteral strictures. POSTOPERATIVE DIAGNOSES: Bilateral hydronephrosis and bilateral ureteral strictures. OPERATION PERFORMED: Cystoscopy and replacement of bilateral 7-Eritrean 24 cm double pigtail indwelling ureter stents. ANESTHESIA: General. INDICATIONS: This patient is a 63-year-old black female, whom I have been following for many years. I initially saw her when she was in acute renal failure. She had massive bilateral hydronephrosis at that time and with great difficulty, I was able to insert bilateral ureteral stents. The patient also had a neurogenic bladder dysfunction, has been on intermittent self-catheterization. I have been replacing her stents about every three months since that time. The patient is now due for cystoscopy and stent replacement. For further details, please refer to the history and physical. The procedure was done in following fashion. PROCEDURE IN DETAIL: The patient was taken to the operating room, placed under general anesthesia and dressed with Hibiclens in lithotomy position in usual fashion. A preliminary scan of the abdomen with the C-arm revealed the bilateral ureteral stents to be in good position and no evidence of stone formation at this time. 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 The stents were readily identified. They did not appear encrusted. The distal end of the left ureter stent was grabbed with a flexible grasping forceps and drawn out through the urethral meatus. Once this was accomplished, using fluoroscopic guidance, I passed a SureGlide guidewire through the stent up into the kidney. I then removed the stent leaving the guidewire in place. I then passed a 5-Eritrean open-ended catheter over the guidewire, removed the guidewire, and obtained a retrograde pyelogram, which showed moderate hydronephrosis. I then reinserted the SureGlide guidewire and removed the 5-Eritrean open-ended catheter. I then passed the cystoscope sheath over the guidewire and then passed the telescope and bridge over the guidewire. My next step was to pass an Olympus 7-Eritrean 24 cm double pigtail indwelling ureter stent over the guidewire using the metal tip pusher. When I could seen the stent was in good position on cystoscopy and fluoroscopy, the guidewire was removed. This revealed the new left ureteral stent to be in good position. I then used a flexible grasping forceps to grab the distal end of the right ureter stent. This was then pulled out through the urethral meatus. A similar procedure was performed. I first inserted the SureGlide guidewire up into the kidney through the stent. I then removed the stent. I then passed a 5-Eritrean open-ended catheter over the guidewire, removed the guidewire and obtained a retrograde pyelogram, which showed moderate hydronephrosis. I then reinserted the guidewire and removed the 5-Eritrean open-ended catheter. I then passed the cystoscope sheath over the guidewire and then the telescope and bridge over the guidewire. I then passed a new 7-Eritrean 24 cm double pigtail indwelling ureter stent over the guidewire into the kidney. When I could see that the stent was in good position on cystoscopy and fluoroscopy, the guidewire was removed. This revealed the right stent to now be in good position. The bladder was emptied and cystoscope withdrawn. A final scan of the abdomen revealed both stents to be in good position and no evidence of extravasation. The patient will have return appointment to see me again in two weeks. Orestes Alberto MD SRA/MODL /[id number]
== END | disposition home or self-care (01) ==
LOC: OR 08:05
PROVIDERS: ATTEND Urology
DX: N13.1 Hydronephrosis with ureteral stricture, not elsewhere classified (principal); Z01.810 Encounter for preprocedural cardiovascular examination; Z01.812 Encounter for preprocedural laboratory examination; Z01.811 Encounter for preprocedural respiratory examination; N31.9 Neuromuscular dysfunction of bladder, unspecified; Q62.39 Other obstructive defects of renal pelvis and ureter; R33.9 Retention of urine, unspecified; N30.21 Other chronic cystitis with hematuria; N18.9 Chronic kidney disease, unspecified; Z87.442 Personal history of urinary calculi; I12.9 Hypertensive chronic kidney disease with stage 1 through stage 4 chronic kidney disease, or unspecified chronic kidney disease
CPT/HCPCS: 36415; 52332; 74420; 80053; 85025; 85610; 85730; 88300; 93005; C1758; C2617; J1100; J2001; J2250; J2405; J2704; Q9967

== ENCOUNTER → 2019-05-20 | Day surgery (SDC) | payer OTHER ==
[2019-05-19 11:13] LABS: BASOPHILS % 0.5 % (0.0-1.0); EOSINOPHILS # (AUTO) 0.1 (0.0-0.4); EOSINOPHILS % 1.7 % (0.0-6.0); HEMOGLOBIN 10.7 g/dL (12.0-16.0); LYMPHOCYTES # (AUTO) 2.2 (1.0-3.2); LYMPHOCYTES % 26.4 % (18.0-39.1); MEAN CORPUSCULAR HEMOGLOBIN 25.4 pg (28-32); MEAN CORPUSCULAR HGB CONC 29.7 g/dL (31-35); MEAN CORPUSCULAR VOLUME 85.5 fL (81-99); MONOCYTES # (AUTO) 0.7 (0.2-0.8); MONOCYTES % 8.3 % (4.4-11.3); NEUTROPHILS # (AUTO) 5.3 (2.1-6.9); NEUTROPHILS % 62.6 % (38.7-80.0); PLATELET COUNT 194 x10e3/uL (140-360); RED BLOOD COUNT 4.21 x10e6/uL (3.6-5.1); RED CELL DISTRIBUTION WIDTH 15.4 % (11.7-14.4)
[2019-05-19 11:26] LABS: INR 0.92; PROTHROMBIN TIME 12.9 seconds (11.9-14.5)
[2019-05-19 11:33] LABS: ALANINE AMINOTRANSFERASE 31 IU/L (0-55); ALBUMIN 3.7 g/dL (3.5-5.0); ALBUMIN/GLOBULIN RATIO 1.1 (0.8-2.0); ALKALINE PHOSPHATASE 116 IU/L (40-150); ANION GAP 11.3 mmol/L (8-16); BLOOD UREA NITROGEN 18 mg/dL (7-26); BUN/CREATININE RATIO 19 (6-25); CALCIUM 9.5 mg/dL (8.4-10.2); CARBON DIOXIDE 31 mmol/L (22-29); CHLORIDE 103 mmol/L (98-107); CREATININE, SERUM 0.95 mg/dL (0.57-1.11); EST GLOMERULAR FILTRATION RATE > 60 ML/MIN (60-); GLUCOSE 103 mg/dL (74-118); POTASSIUM 4.3 mmol/L (3.5-5.1); SODIUM 141 mmol/L (136-145)
--- NOTE | 2019-05-19 11:49 | Diagnostic Imaging Report ---
Chest, 2 views, 05/19/2019. History: Preop, stent replacement. Comparison: 11/18/2018. Findings: The cardiomediastinal silhouette and pulmonary vasculature are within normal limits. There is no focal consolidation or pleural effusion. Linear opacities are present in the left mid lung and both lower lobes. There are no acute osseous or soft tissue abnormalities. Impression: Bilateral linear atelectasis. Signed by: Ramon Rodriguez on 05/19/2019 11:46 AM
[~2019-05-20] MED LIST changes: -DESFLURANE 240 ML BTL INH ONE; +MULTIVITAMINS1 EAC7 PO; +VITAMIN C100 MG PO
--- OUTSIDE RECORDS SUMMARY | 2019-05-20 09:25 | XMS REPORT | Clinical Summary ---
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 Last Filed Vital Signs Not on file Plan of Treatment Health Maintenance Due Date Last Done Comments COLONOSCOPY SCREENING 2006 SHINGLES VACCINES (#1) 2006 BREAST CANCER SCREENING 03/19/2018 03/19/2016, 09/10/2015, 03/02/2015, Additional history exists INFLUENZA VACCINE 05/05/2019 Implants Device Identifier Shelf Expiration Date Model / Serial / Lot Implanted Type Area Manufactur er 10/15/2020 [id number]-826-[id number] / / [id number] 8.0fr X 26cm [employer] Ureteral Stent, N/A: N/A [employer] Stent And Positioner Urology UROLOGICAL Implanted: Qty: 1 on 03/17/2018 by INC. Benigno Millard MD 10/15/2020 [id number]-826-[id number] / / [id number] 8.0fr X 26cm [employer] Ureteral Stent, N/A: N/A [employer] Stent And Positioner Urology UROLOGICAL Implanted: Qty: 1 on 03/17/2018 by INC. Benigno Millard MD Results Not on fileafter 05/19/2018 Insurance Type Payer Benefit Subscriber ID Effective Phone Address Plan / Dates Group PPO BCBS ANTHEM xxxxxxxxxxxx [id number] BLUE CROSS resent Advance Directives Patient has advance care planning documents, and code status on file. For more i nformation, please contact: Rei Degroot [address] [place] [address] Date Inactivated Comments Code Status Date Activated 03/17/2018 10:14 PM Full Code 03/14/2018 12:27 AM Code Status decision reached by: Patient
[2019-05-20 14:15] VITALS: BP 154/73
--- NOTE | 2019-05-20 19:09 | Operative Report ---
DATE OF PROCEDURE: 05/20/2019 SURGEON: Orestes Alberto MD PREOPERATIVE DIAGNOSES: Bilateral hydronephrosis, bilateral ureteral strictures, and neurogenic bladder. POSTOPERATIVE DIAGNOSES: Bilateral hydronephrosis, bilateral ureteral strictures, and neurogenic bladder. OPERATIONS PERFORMED: Cystoscopy and replacement of bilateral 7-Nigerien 24 cm double pigtail stents. ANESTHESIA: General. INDICATIONS: This patient is a 63-year-old black female with a long history of bilateral hydronephrosis and ureteral strictures, and neurogenic bladder. I first encountered her when she was in renal failure and in order to relieve the hydronephrosis, I put up bilateral stents. The patient has had her stents replaced on numerous occasions trying to get it done every 3 months roughly since her initial stent insertion in December of 2007. For further details, please refer to the history and physical. The procedure was done in the following fashion. PROCEDURE IN DETAIL: The patient was taken to the operating room, placed under general anesthesia and dressed and draped with Hibiclens in lithotomy position in the usual fashion. A preliminary scan of the abdomen with the C-arm revealed both stents to be in good position. The 22-Nigerien cystoscope was inserted with the 30-degree oblique lens. The stents were visualized. There was evidence of severe cystitis cystica. No bladder cancers were identified. The left ureteral stent was grabbed with a flexible grasping forceps and part of it was pulled out through the urethral meatus. I was then able to pass a Superglide guidewire up through the stent into the left kidney. Then, I removed the old stent and then passed a 5-Nigerien open-ended catheter over the guidewire. The guidewire was then removed and obtained a retrograde pyelogram, showed that the hydronephrosis was much better now that it was years ago. I then reinserted the Superglide guidewire. I then went to pass the cystoscope sheath over the Superglide guidewire and during the course of this manipulation, the guidewire fell out. At this point in time, it became very difficult to get a new guidewire to go up and numerous manipulations were done using both a straight guidewire and an angled guidewire encounters. There were several ureteral strictures that had to be bypassed and sometimes, the guidewire either the angled or the straight would coil up inside the ureter, but ultimately with great difficulty, I was able to pass an angled Glidewire up into the kidney and had it stay there. At this point in time, I then passed the 5-Nigerien open-ended catheter over the Glidewire up into the kidney. I then removed the Glidewire and then passed an Amplatz Super Stiff through the 5-Nigerien open-ended catheter because I felt that this guidewire would be much less likely to fall out than the Glidewire. Once this was accomplished and I had the Amplatz Super Stiff in good position. I then removed the 5-Nigerien open-ended catheter leaving the Amplatz Super Stiff in good position. I then passed a new 24 cm 7-Nigerien double pigtail indwelling ureteral catheter over the Amplatz Super Stiff guidewire using a pusher. When I could see that the stent was in acceptable position on fluoroscopy, I then removed the guidewire. It looked initially that I may put the stent up a little bit too close. Therefore, using the cystoscope and a flexible grasping forceps, I pulled the stent out a little bit until it was in what I felt to be perfect position and fluoroscopy confirmed this. My next step was to grasp the distal end of the left old stent and pulled back tip out through the urethral meatus. I was unable to pass a Glidewire through the stent because of internal calcifications. I therefore had to pull the stent all the way out. Then, using the 5-Nigerien open-ended catheter, I was able to direct a straight Superglide guidewire up into the left ureteral orifice into the kidney without difficulty. I then passed the 5-Nigerien open-ended catheter over the Glidewire and put it up into the kidney, removed the Glidewire and obtained a retrograde pyelogram to confirm my position and in fact, the hydronephrosis was better than it was years ago. I then reinserted the Superglide guidewire and removed the 5-Nigerien open-ended catheter. I then passed a new 7-Nigerien 24 cm double pigtail indwelling ureter stent over the Superglide guidewire. When I could see that the stone stent was in good position on cystoscopy and fluoroscopy, I removed the Glidewire. This revealed now the both stents were in good position. The bladder was emptied and cystoscope withdrawn. The patient tolerated the procedure well and left the operating room in good condition. She will resume her clean intermittent self-catheterization. I will be sending her home on Macrobid 100 mg p.o. twice daily for 7 days. She will have return appointment to see me again in 2 weeks. Orestes Alberto MD SRA/MODL /[id number]
== END | disposition home or self-care (01) ==
LOC: OR 09:09
PROVIDERS: ATTEND Urology
DX: N13.1 Hydronephrosis with ureteral stricture, not elsewhere classified (principal); Z01.810 Encounter for preprocedural cardiovascular examination; Z01.812 Encounter for preprocedural laboratory examination; Z01.811 Encounter for preprocedural respiratory examination; R33.9 Retention of urine, unspecified; Z87.442 Personal history of urinary calculi; N18.9 Chronic kidney disease, unspecified; N31.9 Neuromuscular dysfunction of bladder, unspecified; N30.21 Other chronic cystitis with hematuria; Q62.39 Other obstructive defects of renal pelvis and ureter; J40 Bronchitis, not specified as acute or chronic; E78.00 Pure hypercholesterolemia, unspecified; E78.5 Hyperlipidemia, unspecified; I12.9 Hypertensive chronic kidney disease with stage 1 through stage 4 chronic kidney disease, or unspecified chronic kidney disease
CPT/HCPCS: 36415; 52332; 71046; 74420; 80053; 85025; 85610; 88300; C1758; C2617; J1100; J2001; J2250; J2405; J2704; J3010; Q9967

== ENCOUNTER → 2019-08-26 | Day surgery (SDC) | payer OTHER ==
[2019-08-25 14:34] LABS: POTASSIUM 4.2 mmol/L (3.5-5.1); SODIUM 139 mmol/L (136-145)
[2019-08-25 14:35] LABS: ALANINE AMINOTRANSFERASE 21 IU/L (0-55); ALBUMIN 3.6 g/dL (3.5-5.0); ALKALINE PHOSPHATASE 112 IU/L (40-150); ANION GAP 12.2 mmol/L (8-16); BLOOD UREA NITROGEN 22 mg/dL (7-26); BUN/CREATININE RATIO 20 (6-25); CALCIUM 9.2 mg/dL (8.4-10.2); CARBON DIOXIDE 25 mmol/L (22-29); CHLORIDE 106 mmol/L (98-107); EST GLOMERULAR FILTRATION RATE > 60 ML/MIN (60-); GLUCOSE 87 mg/dL (74-118)
[2019-08-25 14:44] LABS: INR 0.91; PARTIAL THROMBOPLASTIN TIME 31.7 seconds (23.8-35.5); PROTHROMBIN TIME 12.7 seconds (11.9-14.5)
[2019-08-25 15:30] LABS: HEMATOCRIT 35.3 % (34.2-44.1); HEMOGLOBIN 10.8 g/dL (12.0-16.0); MEAN CORPUSCULAR HEMOGLOBIN 25.2 pg (28-32); MEAN CORPUSCULAR VOLUME 82.5 fL (81-99); RED BLOOD COUNT 4.28 x10e6/uL (3.6-5.1)
[2019-08-25 15:31] LABS: EOSINOPHILS % 0.3 % (0.0-6.0); LYMPHOCYTES % 2.6 % (18.0-39.1); MEAN CORPUSCULAR HGB CONC 30.6 g/dL (31-35); MONOCYTES % 0.9 % (4.4-11.3); NEUTROPHILS % 6.5 % (38.7-80.0); PLATELET COUNT 213 x10e3/uL (140-360); RED CELL DISTRIBUTION WIDTH 16.3 % (11.7-14.4)
[~2019-08-26] MED LIST changes: +HYDRALAZINE HCL 20 MG/ML VIAL ONE; +IOPAMIDOL 300MG/ML 50ML INFUS..BTL IV ONE; -IOPAMIDOL 610MG/1ML 300 MG/ML VIAL IV ONE; -MIDAZOLAM HCL 2 MG/2 ML VIAL ONE
[2019-08-26 15:25] VITALS: BP 156/76
--- NOTE | 2019-08-26 20:22 | Operative Report ---
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 OPERATION PERFORMED: Cystoscopy and placement of bilateral 7-[place] 24 cm double pigtail indwelling ureter stent. INDICATIONS: This patient is a 64-year-old black female with a long history of bilateral hydronephrosis. When I first met this patient, she had bilateral hydronephrosis and is in renal failure. This has been addressed by placing bilateral 7-[place] 24 cm double pigtail indwelling ureter stent attempting to do this every three months. The patient's BUN and creatinine have come down to normal levels. This patient is now due for another replacement of the stent. For further details, please refer to the history and physical. The procedure was done in the following fashion. DESCRIPTION OF PROCEDURE: The patient was taken to the operating room, placed under general anesthesia and prepped and draped with Hibiclens in lithotomy position in usual fashion. A preliminary scan of the abdomen with C-arm revealed the stents to be in good position, no stones were identified. The 25-[place] Olympus cystoscope was inserted with a 30-degree oblique lens and the bladder emptied and then I looked inside again with sterile water for irrigation fluid. The stents were seen coming out of both ureteral orifices. There was evidence of severe cystitis cystica present. The distal end of the right ureteral stent was grasped with a flexible grasping forceps and pulled out through the urethral meatus. I then advanced a SureGlide guidewire through the stent up into the kidney. The stent was then removed leaving the guidewire in position. I then passed the cystoscope sheath over the guidewire and then the telescope from bridge over the guidewire. I then passed a 5-[place] open-ended catheter over the guidewire into the right kidney, removed the guidewire and obtained a retrograde pyelogram under fluoroscopy, which showed that I was in good position and that there was hydronephrosis. I then reinserted the SureGlide guidewire back into the kidney and removed the 5-[place] open-ended catheter. I then passed a Microvasive 7-[place] 24 cm double pigtail indwelling ureter stent over the Glidewire. Once I could see there was good position on cystoscopy and fluoroscopy, the guidewire was removed. This revealed a good coil of stent within the bladder and within the right kidney. My attention was then placed to the left kidney where I grabbed the distal end of the stent with a flexible grasping forceps and pulled it out through the urethral meatus. I then advanced a SureGlide guidewire through the stent into the left kidney and then removed the stent leaving the guidewire in position. I then passed the cystoscope over the guidewire and passed a 5-[place] open-ended catheter over the guidewire to obtain a retrograde pyelogram, which again showed hydronephrosis. The guidewire was then reinserted. The 5-[place] open-ended catheter was removed. I then passed a new 7-[place] 24 cm double pigtail indwelling ureter stent over the Glidewire. When I could see that the stent was in good position on cystoscopy and fluoroscopy, the guidewire was removed, this revealed the stent to be in good position in the kidney and in the bladder. The bladder was emptied and cystoscope withdrawn. The patient tolerated the procedure well and left the operating room in good condition. She will go home on Keflex 500 mg one p.o. 4 times daily for 7 days. She will have return appointment to see me again in 1-2 weeks. Orestes Alberto MD SRA/MODL /[id number]
== END | disposition home or self-care (01) ==
LOC: OR 11:14
PROVIDERS: ATTEND Urology
DX: N13.1 Hydronephrosis with ureteral stricture, not elsewhere classified (principal); N30.21 Other chronic cystitis with hematuria; Z46.6 Encounter for fitting and adjustment of urinary device; N31.9 Neuromuscular dysfunction of bladder, unspecified; I12.9 Hypertensive chronic kidney disease with stage 1 through stage 4 chronic kidney disease, or unspecified chronic kidney disease; N18.9 Chronic kidney disease, unspecified; Q62.39 Other obstructive defects of renal pelvis and ureter; E78.00 Pure hypercholesterolemia, unspecified; R00.1 Bradycardia, unspecified; Z01.810 Encounter for preprocedural cardiovascular examination; Z01.812 Encounter for preprocedural laboratory examination; Z87.442 Personal history of urinary calculi; Z84.1 Family history of disorders of kidney and ureter
CPT/HCPCS: 36415; 52332; 74420; 80053; 85025; 85610; 85730; 93005; C1758; C2617; J0360; J1100; J2001; J2405; J2704; J3010; Q9967